=== PATIENT | male | born 1955 | race Caucasian/White ===

== ENCOUNTER 2018-06-01 06:28 | Day surgery (SDC) | payer BC ==
--- NOTE | 2018-05-31 16:33 | RAD REPORT ---
EXAM DESCRIPTION: RAD - Chest Pa And Lat (2 Views) - 05/31/2018 4:25 pm CLINICAL HISTORY: Preop chest, pending cholecystectomy COMPARISON: February 2016 TECHNIQUE: PA and lateral views of the chest were obtained. FINDINGS: The lungs are clear of an acute infiltrate, mass or failure finding. Parenchymal and hilar granulomatous calcifications are present. Lung markings are not significantly different from compari son. Heart size is normal and central vasculature is within normal limits. No pleural effusion or pneumothorax seen. No acute bony finding noted. No aortic abnormality. IMPRESSION: No acute cardiopulmonary process. Chest findings are similar to February 2016.
[2018-05-31 16:49] LABS: Absolute Monocytes 0.7 K/uL (0.1-1.3); Absolute Neutrophil 5.6 K/uL (1.8-8.0); Basophils % 0.4 % (0-1.3); Eosinophils % 2.1 % (0-4.4); Hematocrit 42.9 % (39.6-49.0); Lymphocytes % 23.3 % (15.3-44.8); MCH 31.3 pg (27.0-35.0); MCV 93.1 fL (80-100); MPV 8.1 fL (7.6-11.3); Monocytes % 8.8 % (3.3-12.3); RBC Red Blood Cell Count 4.61 M/uL (4.33-5.43)
[2018-05-31 17:03] LABS: BUN Blood Urea Nitrogen 23 mg/dL (7-18); Bicarbonate 29 mmol/L (21-32); Glucose Level 195 mg/dL (74-106); Potassium 4.2 mmol/L (3.5-5.1); Sodium Level 140 mmol/L (136-145)
[2018-05-31 17:25] LABS: Albumin 3.7 g/dL (3.4-5.0); Bilirubin Direct 0.1 mg/dL (0-0.2); Bilirubin Total 0.4 mg/dL (0.2-1.0); Protein, Total 7.7 g/dL (6.4-8.2)
--- NOTE | 2018-05-31 21:11 | EKG ---
Test Date: 2018-05-31 Test Time: 16:21:13 Market Researcher: HARDEEP MEASUREMENT RESULTS: Intervals: Rate: 62 CA: 134 QRSD: 86 QT: 388 QTc: 393 [place]: P: 92 CA: 134 QRS: -11 T: 51 INTERPRETIVE STATEMENTS: Normal sinus rhythm Normal ECG No previous ECG available for comparison Electronically Signed On 05-31-18 21:10:17 CDT by Isaiah Eaton
[2018-06-01] MEDS ORDERED: BUPIVACAINE 0.5% PF 10 ML VIAL ONE (07:11)
[2018-06-01] MEDS ORDERED: ROCURONIUM 50 MG/5 ML VIAL IV ONE (07:18)
[2018-06-01] MEDS ORDERED: FENTANYL CITR 100 MCG/2 ML ONE (07:18)
[2018-06-01] MEDS ORDERED: MIDAZOLAM HCL 2 MG/2 ML INJ ONE (07:18)
[2018-06-01] MEDS ORDERED: PROPOFOL 200 MG/20 ML VIAL IV ONE (07:18)
[2018-06-01] MEDS ORDERED: LIDOCAINE 1% MPF 5 ML VIAL ONE (07:18)
[2018-06-01] MEDS ORDERED: CEFOXITIN/SWI 1gm 1 GM/10 ML SYR ONE (07:36)
[2018-06-01] MEDS ORDERED: NA CHLORIDE 0.9% 1,000 ML ONE ×2 (07:36→08:49)
[2018-06-01] MEDS ORDERED: GLYCOPYRROLATE 0.2 MG/ML SYR ONE ×3 (08:29→08:49)
[2018-06-01] MEDS ORDERED: NEOSTIGMINE 1 MG/ML -5 ML SYRINGE ONE (08:49)
[2018-06-01] MEDS ORDERED: KETOROLAC 30 MG/ML INJ ONE (08:49)
[2018-06-01] MEDS ORDERED: ONDANSETRON HCL 40 MG/20 ML VIAL ONE (08:49)
--- NOTE | 2018-06-01 08:51 | P.BOP ---
Preoperative diagnosis: Acute cholecystitis, symptomatic cholelithiasis Postoperative diagnosis: same, incarcerated umbilical hernia Primary procedure: 1. Laparoscopic cholecystectomy Secondary procedure: 2. open repair of incarcerated umbilical hernia Log Buncher: CHARLES REAGAN Estimated blood loss: <10cc Specimen: gb Findings: as above Anesthesia: General Complications: None Transferred to: Recovery Room Condition: Good
[2018-06-01] MEDS ORDERED: MEPERIDINE HCL 50 MG/ML AMP ONE (09:23)
[2018-06-01] MEDS ORDERED: CODEINE 30MG/APAP 300MG TAB ONE (10:35)
--- NOTE | 2018-06-11 15:39 | OP ---
Date of Procedure: 06/01/2018 Surgeon: Zachary Lebron MD Out Of [employer] Hours Care Worker: DEYANIRA Lawton. Preoperative Diagnoses: Acute cholecystitis, symptomatic cholelithiasis. Postoperative Diagnoses: Acute cholecystitis, symptomatic cholelithiasis, incarcerated umbilical her jennifer. Procedures: 1.Laparoscopic cholecystectomy. 2.Open repair of an incarcerated umbilical hernia. Estimated Blood Loss: Less than 10 cc. Specimen: Gallbladder. Anesthesia: General plus local. Findings: The patient has acute cholecystitis, symptomatic cholelithiasis, also have incarcerated om entum in the umbilical hernia. Indications: This is the case of a patient who comes to us with above diagnosis. Fully explained th e benefits, alternatives, and risks of laparoscopic, possible open cholecystectomy, which include but are not limited to infection, bleeding, damage to adjacent structures, anesthesia complication, chol edocholithiasis, bile leak, pancreatitis, OH, and even . He also understands this may not relie ve his symptoms. He might need more than one surgical intervention. He understood, signed a consent . Description Of Procedure: The patient was brought to the operating room, placed in supine position. Anesthesia was done without complication. A time-out was called. Abdominal area was prepped and dr aped in sterile fashion. Marcaine 0.5% was injected for local anesthetic, followed by sharp incision of the skin in the umbilical region. Once we made the incision, we noticed the patient to have an i ncarcerated umbilical hernia. The patient is obese, so we were able to carefully delineate the herni a sac. We removed it from the umbilical skin, opened the hernia sac. Noted to have incarcerated ome ntum. After removal of adhesions to the hernia sac, we were able to visualize the omentum, seemed to be intact, viable, so we reduced it back into the abdominal cavity making sure there was no bleeding . We removed the hernia sac. After that, we extended the incision a little bit more to allow us to put a Sanjiv trocar with Vicryl #1 placed inside the fascia. Sanjiv trocar was carefully introduced. Pneumoperitoneum was obtained. I placed 3 more trocars, 5 mm each one of them, in the right upper quadrant using same technique, under direct visualization. A grasper was placed in the fundus of the gallbladder, another grasper was placed in the infundibulum, and the patient's gallbladder retracted in the inferolateral fashion exposing the triangle of Calot, obtaining critical view of safety, afte r proper position of the patient. The cystic duct and cystic artery were clearly isolated free circu mferentially, and a connection between those and the gallbladder was clearly identified. I proceeded to ligate those by using at least 3 clips proximal, 1 clip distal, ligation in middle. Same was don e with the cystic artery. No bile leak. No bleeding. The gallbladder was removed from liver using Bovie cauterizer and removed from abdominal cavity using EndoCatch through umbilical incision. The a josé miguel was inspected once again. Clips were intact. No bile leak. No bleeding. Gallbladder fossa wit h no bleeding. At that moment, I proceeded to remove the trocars under direct vision. Deflated pneu moperitoneum. Closed the fascia and the umbilical hernia with #1 Vicryl. Irrigated subcu tissue, cl osed that with 3-0 chromic and then the skin approximated. Sponge count instrument counts were corre ct. The patient tolerated the procedure well. The patient was sent to recovery room in stable condi tion. JOE/MAYA Voice ID: [id number] Report ID: [id number]
--- NOTE | 2018-06-11 15:39 | DS ---
Date of Discharge: 06/01/2018 Diagnoses: Acute cholecystitis symptomatic cholelithiasis, incarcerated umbilical hernia. Procedures: Laparoscopic cholecystectomy. Open repair of incarcerated umbilical hernia. Disposition: Home. Activity as tolerated. No heavy lifting. Follow up in my office in 1 week. Tamara frost for appointment [phone]. Keep area dry for 48 hours, then may shower. For medications, see orders. JOE/MAYA Voice ID: [id number] Report ID: [id number]
== END 2018-06-01 11:04 | disposition home or self-care (01) ==
LOC: OR 06:28
PROVIDERS: ATTEND Surgery
PROC: 0WQF0ZZ Repair Abdominal Wall, Open Approach (ICD-10-PCS; 2018-06-01)
PROC: 0FT44ZZ Resection of Gallbladder, Percutaneous Endoscopic Approach (ICD-10-PCS; principal; 2018-06-01 07:30)
DX: K80.12 Calculus of gallbladder with acute and chronic cholecystitis without obstruction (principal); K42.0 Umbilical hernia with obstruction, without gangrene; I10 Essential (primary) hypertension; E11.9 Type 2 diabetes mellitus without complications; Z82.49 Family history of ischemic heart disease and other diseases of the circulatory system
CPT/HCPCS: 36415; 71046; 80048; 80076; 82150; 82962; 83690; 85025; 88304; 93005; J2175; J2250; J2405; J2710; J3010; J7030

== ENCOUNTER 2020-01-13 17:55 | Emergency (ER) | payer BC, OTHER ==
--- NOTE | 2020-01-13 18:42 | RAD REPORT ---
EXAM DESCRIPTION: RAD - Chest Single View - 01/13/2020 6:36 pm CLINICAL HISTORY: COUGH Chest pain. COMPARISON: Chest Pa And Lat (2 Views) dated 05/31/2018; Chest Pa And Lat (2 Views) dated 02/24/2016 FINDINGS: Portable technique limits examination quality. Interstitial lung markings are slightly prominent in the parahilar regions which could indicate viral pneumonitis. No focal consolidation typical of pneumonia seen. The heart is normal in size. No displ aced fractures.
[2020-01-13 19:42] LABS: Absolute Lymphocytes (CBC) 1.6 K/uL (0.7-4.9); Basophils % 0.3 % (0-1.3); Hematocrit 46.1 % (39.6-49.0); Lymphocytes % 15.5 % (15.3-44.8); MPV 8.1 fL (7.6-11.3); RBC Red Blood Cell Count 5.05 M/uL (4.33-5.43)
[2020-01-13 19:48] LABS: Protime INR 0.92
[2020-01-13 20:02] LABS: ALT/SGPT 30 U/L (12-78); AST/SGOT 13 U/L (15-37); Albumin 3.8 g/dL (3.4-5.0); Alkaline Phosphatase 55 U/L (45-117); BUN Blood Urea Nitrogen 15 mg/dL (7-18); Bicarbonate 29 mmol/L (21-32); Bilirubin Direct 0.1 mg/dL (0-0.2); Bilirubin Total 0.3 mg/dL (0.2-1.0); Glucose Level 179 mg/dL (74-106); NT PRO-BNP 41 pg/mL (<125); Potassium 4.3 mmol/L (3.5-5.1); Protein, Total 8.3 g/dL (6.4-8.2); Sodium Level 139 mmol/L (136-145); Troponin (Emerg Dept Use Only) < 0.02 ng/mL (0.0-0.045)
--- NOTE | 2020-01-13 20:30 | EDPHYS ---
Physician Documentation [facility] Name: Bhavesh Graham Jr Age: 64 yrs Sex: Male : 1955 Arrival Date: 01/13/2020 Time: 17:57 Bed 20 Private MD: ED Physician Mac Brand HPI: 01/12 18:29 This 64 yrs old Male presents to ER via Ambulatory with complaints of Cough, cp Fever, Chest Tightness. 18:33 The patient has been recently seen at an urgent care, today, for similar complaints, cp was given a prescription for antibiotics, prescribed oral Amoxicillin and Z-miriam. Historical: - Allergies: 19:49 No Known Allergies; ae4 - PMHx: 18:09 Diabetes - NIDDM; High Cholesterol; Hypertension; ss - PSHx: 18:09 Ear Surgery; ss - Immunization history:: Adult Immunizations up to date. - Social history:: Smoking status: Patient denies any tobacco usage or history of. ROS: 18:40 Constitutional: Negative for body aches, chills, fever, poor PO intake. cp 18:40 Eyes: Negative for injury, pain, redness, and discharge. cp 18:40 ENT: Positive for sore throat, Negative for drainage from ear(s), ear pain, difficulty cp swallowing, difficulty handling secretions. 18:40 Cardiovascular: Positive for chest tightness. 18:40 Respiratory: Positive for cough, "sounds productive", Negative for shortness of breath, wheezing. 18:40 Abdomen/GI: Negative for abdominal pain, nausea, vomiting, and diarrhea, constipation. 18:40 Neuro: Negative for altered mental status, dizziness, headache, syncope, weakness. 18:40 All other systems are negative. Exam: 18:45 Constitutional: The patient appears in no acute distress, alert, awake, cp non-diaphoretic, non-toxic, well developed, well nourished. 18:45 Head/Face: Normocephalic, atraumatic. cp 18:45 Eyes: Periorbital structures: appear normal, Conjunctiva: normal, no exudate, no injection, Sclera: no appreciated abnormality, Lids and lashes: appear normal, bilaterally. 18:45 ENT: External ear(s): are unremarkable, Nose: is normal, Mouth: Lips: moist, Oral mucosa: pink and intact, moist, Posterior pharynx: is normal, airway is patent, no erythema, no exudate. 18:45 Neck: ROM/movement: is normal, is supple, no meningismus, no nuchal rigidity. 18:45 Chest/axilla: Inspection: normal, Palpation: is normal, no crepitus, no tenderness. 18:45 Cardiovascular: Rate: normal, Rhythm: regular, Edema: is not appreciated, JVD: is not appreciated. 18:45 Respiratory: the patient does not display signs of respiratory distress, Respirations: normal, no use of accessory muscles, no retractions, no splinting, labored breathing, is not present, Breath sounds: bronchial sounds, that are mild, are heard diffusely, stridor, is not appreciated, + upper airway congestion. wheezing: is not appreciated. 18:45 Abdomen/GI: Inspection: abdomen appears normal, Palpation: abdomen is soft and non-tender, in all quadrants. 18:45 Back: pain, is absent, ROM is normal. 18:45 Skin: no rash present. 18:45 Neuro: Orientation: to person, place \\T\\ time. Mentation: is normal. Vital Signs: 18:07 BP 153 / 107; Pulse 77; Resp 16; Temp 98.7(TE); Pulse Ox 100% on R/A; Weight 83.01 kg; ss Height 5 ft. 7 in. (170.18 cm); Pain 0/10; 19:45 BP 146 / 85; Pulse 82; Resp 19; Pulse Ox 99% on R/A; ae4 18:07 Body Mass Index 28.66 (83.01 kg, 170.18 cm) MDM: 18:01 Patient medically screened. angelita 19:00 Differential Diagnosis: Bronchitis Influenza Viral Syndrome Pneumonia. cp 20:28 Data reviewed: vital signs, nurses notes, lab test result(s), EKG, radiologic studies, cp plain films. 20:28 Test interpretation: by ED physician or midlevel provider: ECG. Counseling: I had a cp detailed discussion with the patient and/or guardian regarding: the historical points, exam findings, and any diagnostic results supporting the discharge/admit diagnosis, lab results, radiology results, to return to the emergency department if symptoms worsen or persist or if there are any questions or concerns that arise at home. ED course: VSS. Patient appears non-toxic and no signs of respiratory distress. Will discharge to home and patient to self quarantine for next 11 days with family. Testing for coronavirus performed. 01/12 18:20 Order name: Flu [facility] 01/12 18:20 Order name: Strep ae 01/12 18:20 Order name: Basic Metabolic Panel; Complete Time: 20:18 ae4 01/12 20:18 Interpretation: Normal except: GLUC 179. 01/12 18:20 Order name: CBC with Diff; Complete Time: 19:51 ae 01/12 19:52 Interpretation: Reviewed. 01/12 18:20 Order name: LFT's; Complete Time: 20:18 [facility] 01/12 20:18 Interpretation: Normal except: AST 13; TP 8.3; GLOB 4.5; A/G 0.8. 01/12 18:20 Order name: Magnesium; Complete Time: 20:18 [facility] 01/12 18:20 Order name: NT PRO-BNP; Complete Time: 20:18 [facility] 01/12 18:20 Order name: PT-INR; Complete Time: 19:51 [facility] 01/12 18:20 Order name: Troponin (emerg Dept Use Only); Complete Time: 20:18 [facility] 01/12 20:19 Interpretation: TROPED < 0.02; Reviewed. 01/12 18:20 Order name: Influenza Screen (A ; Complete Time: 20:18 [facility] 01/12 20:19 Interpretation: Reviewed. 01/12 18:20 Order name: Group A Streptococcus Rapid Sc; Complete Time: 20:18 [facility] 01/12 19:53 Order name: Throat Culture [facility] 01/12 18:20 Order name: XRAY Chest (1 view); Complete Time: 18:49 [facility] 01/12 18:49 Interpretation: Report review. 01/12 18:20 Order name: EKG; Complete Time: 18:21 [facility] 01/12 18:20 Order name: Cardiac monitoring; Complete Time: 19:45 [facility] 01/12 18:20 Order name: EKG - Nurse/Tech; Complete Time: 19:45 [facility] 01/12 18:20 Order name: IV Saline Lock; Complete Time: 19:45 [facility] 01/12 18:20 Order name: Labs collected and sent; Complete Time: 19:45 ae4 01/12 18:20 Order name: O2 Per Protocol; Complete Time: 19:45 ae4 01/12 18:20 Order name: O2 Sat Monitoring; Complete Time: 19:45 ae4 01/12 21:12 Order name: Misc. Order: Covid-19; Complete Time: 21:12 bb Administered Medications: No medications were administered Disposition: 01/13 13:42 Co-signature as Attending Physician, Mac Brand MD I agree with the assessment and angelita plan of care. Disposition: 01/13/20 20:29 Discharged to Home. Impression: Acute bronchitis. - Condition is Stable. - Discharge Instructions: Acute Bronchitis, Adult. - Prescriptions for Tessalon Perles 100 mg Oral Capsule - take 2 capsule by ORAL route every 8 hours As needed; 30 capsule. Albuterol Sulfate 90 mcg/actuation - inhale 1-2 puff by INHALATION route every 4-6 hours; 1 Inhaler. - Medication Reconciliation Form, Thank You Letter, Antibiotic Education, Prescription Opioid Use form. - Work release form (01/15/20 08:41). bd - Follow up: Emergency Department; When: As needed; Reason: Worsening of condition. - Problem is new. - Symptoms have improved. - Notes: Patient is to self quarantine for next 11 days along with family Signatures: Dispatcher [employer] EDMac Ponce MD MD cha Ballard, Brenda, RN RN Nicole Posada RN RN ss Page, Corey, PA PA cp Elliott, Andrea, RN RN ae4 Bruna Chester bd Corrections: (The following items were deleted from the chart) 01/12 19:50 18:09 Allergies: NKDA; ss ae4 20:56 20:29 01/13/2020 20:29 Discharged to Home. Impression: Acute bronchitis. Condition is ae4 Stable. Forms are Medication Reconciliation Form, Thank You Letter, Antibiotic Education, Prescription Opioid Use. Follow up: Emergency Department; When: As needed; Reason: Worsening of condition. Problem is new. Symptoms have improved. cp 21:12 20:56 01/13/2020 20:29 Discharged to Home. Impression: Acute bronchitis. Condition is bb Stable. Discharge Instructions: Acute Bronchitis, Adult. Prescriptions for Tessalon Perles 100 mg Oral Capsule - take 2 capsule by ORAL route every 8 hours As needed; 30 capsule, Albuterol Sulfate 90 mcg/actuation - inhale 1-2 puff by INHALATION route every 4-6 hours; 1 Inhaler. and Forms are Medication Reconciliation Form, Thank You Letter, Antibiotic Education, Prescription Opioid Use. Follow up: Emergency Department; When: As needed; Reason: Worsening of condition. Problem is new. Symptoms have improved. ae4
--- NOTE | 2020-01-13 20:30 | ER ---
Nurse's Notes [facility] Name: Bhavesh Graham Jr Age: 64 yrs Sex: Male : 1955 Arrival Date: 01/13/2020 Time: 17:57 Bed 20 Private MD: Diagnosis: Acute bronchitis Presentation: 01/12 18:07 Chief complaint: Patient states: cough x 3 days. Pt was seen at urgent care today and ss given amoxicillin, Z-Arya and Tessalon Perles. Staff members told him if he developed a fever, to come to the hospital. Pt states he felt warm, checked his temperature which it was 99.5. Coronavirus screen: Surgical mask placed on patient. Patient moved to private room, placed in contact and droplet isolation with eye protection until further assessment. Patient reports a cough. Patient denies shortness of breath or difficulty breathing. Patient denies measured and/or subjective temperature greater than 100.4F. Patient denies travel on a cruise ship or to a country the [facility] currently lists as an affected area. Patient denies contact with known and/or suspected case of COVID-19. Ebola Screen: Patient denies exposure to infectious person. Patient denies travel to an Ebola-affected area in the 21 days before illness onset. Initial Sepsis Screen: Does the patient meet any 2 criteria? No. Patient's initial sepsis screen is negative. Does the patient have a suspected source of infection? No. Patient's initial sepsis screen is negative. Risk Assessment: Do you want to hurt yourself or someone else? Patient reports no desire to harm self or others. 18:07 Method Of Arrival: Ambulatory ss 18:07 Acuity: JASMEET 5 ss 19:50 Onset of symptoms was January 09, 2020. ae4 Triage Assessment: 19:20 General: Appears in no apparent distress. comfortable, Behavior is calm, cooperative. ae4 Pain: Complains of pain in chest upon cough. EENT: Reports nasal congestion nasal discharge. 19:20 EENT:. Neuro: Level of Consciousness is awake, alert, obeys commands, Oriented to ae4 person. Cardiovascular: Patient's skin is warm and dry. Respiratory: Airway is patent Respiratory effort is even, unlabored, Respiratory pattern is regular, symmetrical. Respiratory: Reports shortness of breath cough that is non-productive, dry, persistent. GI: No signs and/or symptoms were reported involving the gastrointestinal system. : No signs and/or symptoms were reported regarding the genitourinary system. Derm: Skin is pink, warm \T\ dry. Musculoskeletal: No signs and/or symptoms reported regarding the musculoskeletal system. Historical: - Allergies: 19:49 No Known Allergies; ae4 - PMHx: 18:09 Diabetes - NIDDM; High Cholesterol; Hypertension; ss - PSHx: 18:09 Ear Surgery; ss - Immunization history:: Adult Immunizations up to date. - Social history:: Smoking status: Patient denies any tobacco usage or history of. Screenin:46 Abuse screen: Denies threats or abuse. Nutritional screening: No deficits noted. ae4 Tuberculosis screening: No symptoms or risk factors identified. Fall Risk None identified. Assessment: 19:50 Pain: Pain does not radiate. Pain began gradually, 2-3 days ago. ae4 20:51 Reassessment: Patient appears in no apparent distress at this time. No changes from ae4 previously documented assessment. Patient is alert, oriented x 3, equal unlabored respirations, skin warm/dry/pink. 01/13 08:28 Reassessment: [facility]# [id number]. Vital Signs: 01/12 18:07 BP 153 / 107; Pulse 77; Resp 16; Temp 98.7(TE); Pulse Ox 100% on R/A; Weight 83.01 kg; ss Height 5 ft. 7 in. (170.18 cm); Pain 0/10; 19:45 BP 146 / 85; Pulse 82; Resp 19; Pulse Ox 99% on R/A; ae4 18:07 Body Mass Index 28.66 (83.01 kg, 170.18 cm) ED Course: 17:57 Patient arrived in ED. mr 18:01 Mac Brand MD is Attending Physician. angelita 18:01 Mac Luciano PA is PHCP. cp 18:09 Triage completed. ss 18:09 Arm band placed on left wrist. 18:18 Ignacio Martell, SHEY is Primary Nurse. ae4 18:37 XRAY Chest (1 view) In Process Unspecified. EDMS 19:20 Inserted saline lock: 20 gauge in right antecubital area, using aseptic technique. ae4 Blood collected. Patient maintains SpO2 saturation greater than 95% on room air. 19:47 Patient has correct armband on for positive identification. Bed in low position. Call ae4 light in reach. Side rails up X 1. awake overnight monitor on. Pulse ox on. NIBP on. 20:51 No provider procedures requiring assistance completed. IV discontinued, intact, ae4 bleeding controlled, No redness/swelling at site. Pressure dressing applied. 21:10 Primary Nurse role handed off by Ignacio Martell, RN bb Administered Medications: No medications were administered Outcome: 20:29 Discharge ordered by . maggie 20:51 Discharged to home ambulatory. ae4 20:51 Condition: stable 20:51 Discharge instructions given to patient, Instructed on discharge instructions, follow up and referral plans. Self quarantine as well as family. Demonstrated understanding of instructions, follow-up care. 20:56 Patient left the ED. ae4 21:12 Patient left the ED. bb Signatures: Dispatcher [employer] EDMS Mac Brand MD MD cha Rivera, Mary mr Emily Hedrick RN RN Nicole Posada RN RN ss Page, Corey, PA PA cp Elliott, Andrea, RN RN ae4 Corrections: (The following items were deleted from the chart) 19:50 18:09 Allergies: NKDA; ss ae4
[2020-01-13 21:06] VITALS: TEMP 98.7
[2020-01-13 21:07] VITALS: BP 146/85; O2SAT 99
--- NOTE | 2020-01-14 09:17 | EKG ---
Test Date: 2020-01-13 Test Time: 19:29:06 [employer] Sewer: SREE MEASUREMENT RESULTS: Intervals: Rate: 73 AL: 138 QRSD: 74 QT: 356 QTc: 392 [place]: P: 56 AL: 138 QRS: -13 T: 37 INTERPRETIVE STATEMENTS: Normal sinus rhythm Inferior infarct, age undetermined Abnormal ECG Compared to ECG 05/31/2018 16:21:13 Myocardial infarct finding now present Electronically Signed On 01-14-20 09:16:16 CDT by Josh Stevens
== END 2020-01-13 21:12 | disposition home or self-care (01) ==
LOC: ER 17:55
DX: J20.9 Acute bronchitis, unspecified (principal); Z03.818 Encounter for observation for suspected exposure to other biological agents ruled out; I10 Essential (primary) hypertension
CPT/HCPCS: 93005; 87070; 85025; 80048; 36415; 83735; 85610; 80076; 87081; 84484; 83880; 87804 ×2; 71045; 99285; U0001

== ENCOUNTER 2020-05-18 14:26 | Emergency (ER) | payer BC ==
--- NOTE | 2020-05-18 14:57 | ER ---
Nurse's Notes [facility] Name: Bhavesh Graham Jr Age: 64 yrs Sex: Male : 1955 Arrival Date: 05/18/2020 Time: 14:30 Bed 13 Private MD: Diagnosis: Conjunctivitis Presentation: 05/18 14:42 Chief complaint: Patient states: Redness, itching, puffiness and drainage to R eye x 1 ss week. Is now spreading to L eye. Coronavirus screen: Client denies travel out of the [place] in the last 14 days. At this time, the client does not indicate any symptoms associated with coronavirus-19. Ebola Screen: Patient denies exposure to infectious person. Patient denies travel to an Ebola-affected area in the 21 days before illness onset. Initial Sepsis Screen: Does the patient meet any 2 criteria? No. Patient's initial sepsis screen is negative. Does the patient have a suspected source of infection? No. Patient's initial sepsis screen is negative. Risk Assessment: Do you want to hurt yourself or someone else? Patient reports no desire to harm self or others. Onset of symptoms was April 2020. 14:42 Method Of Arrival: Ambulatory ss 14:42 Acuity: JASMEET 5 ss Historical: - Allergies: 14:43 No Known Allergies; ss - PMHx: 14:43 Diabetes - NIDDM; High Cholesterol; Hypertension; ss - PSHx: 14:43 Ear Surgery; ss - Immunization history:: Adult Immunizations up to date. - Social history:: Smoking status: Patient denies any tobacco usage or history of. Screenin:44 Abuse screen: Denies threats or abuse. Denies injuries from another. Nutritional ss screening: No deficits noted. Tuberculosis screening: Never had TB. Fall Risk None identified. Assessment: 14:44 General: Appears in no apparent distress. comfortable, Behavior is calm, cooperative. ss Pain: Denies pain. Neuro: Level of Consciousness is awake, alert, obeys commands, Oriented to person, place, time, situation. Respiratory: Airway is patent Respiratory effort is even, unlabored, Respiratory pattern is regular, symmetrical. GI: No signs and/or symptoms were reported involving the gastrointestinal system. EENT: redness to bilateral sclera/ conjunctiva noted. Pt reports this began 1 week ago. BEgan in R eye, now spread to L eye. . Derm: Skin is pink, warm \T\ dry. normal. Vital Signs: 14:42 BP 149 / 84; Pulse 65; Resp 16; Temp 98.2(O); Pulse Ox 97% on R/A; Weight 82.55 kg; ss Height 5 ft. 7 in. (170.18 cm); Pain 0/10; 14:42 Body Mass Index 28.50 (82.55 kg, 170.18 cm) ED Course: 14:30 Patient arrived in ED. fj1 14:42 Nicole Machado, SHEY is Primary Nurse. 14:43 Triage completed. 14:43 Arm band placed on right wrist. 14:44 Austyn Rosado PA is PHCP. jr8 14:44 Roni Ortiz MD is Attending Physician. jr8 14:44 Patient has correct armband on for positive identification. Bed in low position. Call ss light in reach. 14:57 You Julian MD is Referral Physician. jr8 15:02 No provider procedures requiring assistance completed. Patient did not have IV access ss during this emergency room visit. Administered Medications: No medications were administered Outcome: 14:57 Discharge ordered by . jr8 15:02 Discharged to home ambulatory. 15:02 Condition: good 15:02 Discharge instructions given to patient, Instructed on discharge instructions, follow up and referral plans. Demonstrated understanding of instructions, follow-up care, medications, Prescriptions given X 1. 15:03 Patient left the ED. Signatures: Nicole Machado RN RN Austyn Rosado PA PA Boris Perry fj
--- NOTE | 2020-05-18 14:58 | EDPHYS ---
Physician Documentation [facility] Name: Bhavesh Graham Jr Age: 64 yrs Sex: Male : 1955 Arrival Date: 05/18/2020 Time: 14:30 Bed 13 Private MD: ED Physician Roni Ortiz HPI: 05/18 14:53 This 64 yrs old Male presents to ER via Ambulatory with complaints of Eye jr8 Problem. 14:53 The patient is experiencing matting or discharge, pain, redness, tearing, to both eyes. jr8 Onset: The symptoms/episode began/occurred gradually. Duration: the symptoms are continuous. Aggravated by rubbing, Alleviated by nothing. Associated signs and symptoms: Pertinent positives: None. Severity of symptoms: At their worst the symptoms were mild in the emergency department the symptoms are unchanged. The patient has not experienced similar symptoms in the past. The patient has not recently seen a physician. Historical: - Allergies: 14:43 No Known Allergies; ss - PMHx: 14:43 Diabetes - NIDDM; High Cholesterol; Hypertension; ss - PSHx: 14:43 Ear Surgery; ss - Immunization history:: Adult Immunizations up to date. - Social history:: Smoking status: Patient denies any tobacco usage or history of. ROS: 14:53 ENT: Negative for injury, pain, and discharge, Neck: Negative for injury, pain, and jr8 swelling, Cardiovascular: Negative for chest pain, palpitations, and edema, Respiratory: Negative for shortness of breath, cough, wheezing, and pleuritic chest pain, Abdomen/GI: Negative for abdominal pain, nausea, vomiting, diarrhea, and constipation, Back: Negative for injury and pain, MS/Extremity: Negative for injury and deformity, Skin: Negative for injury, rash, and discoloration, Neuro: Negative for headache, weakness, numbness, tingling, and seizure. 14:53 Eyes: Positive for discharge, itching, matting, pain, redness, tearing. Exam: 14:53 Visual Acuity: Visual acuity is within normal limits. jr8 14:53 Constitutional: This is a well developed, well nourished patient who is awake, alert, and in no acute distress. Head/Face: Normocephalic, atraumatic. ENT: Nares patent. No nasal discharge, no septal abnormalities noted. Tympanic membranes are normal and external auditory canals are clear. Oropharynx with no redness, swelling, or masses, exudates, or evidence of obstruction, uvula midline. Mucous membranes moist. Cardiovascular: Regular rate and rhythm with a normal S1 and S2. No gallops, murmurs, or rubs. Normal PMI, no JVD. No pulse deficits. Respiratory: Lungs have equal breath sounds bilaterally, clear to auscultation and percussion. No rales, rhonchi or wheezes noted. No increased work of breathing, no retractions or nasal flaring. Skin: Warm, dry with normal turgor. Normal color with no rashes, no lesions, and no evidence of cellulitis. MS/ Extremity: Pulses equal, no cyanosis. Neurovascular intact. Full, normal range of motion. Neuro: Awake and alert, GCS 15, oriented to person, place, time, and situation. Cranial nerves II-XII grossly intact. Motor strength 5/5 in all extremities. Sensory grossly intact. Cerebellar exam normal. Normal gait. 14:53 Eyes: Periorbital structures: appear normal, Pupils: equal, round, and reactive to light and accomodation, Extraocular movements: intact throughout, Conjunctiva: injected, in the right eye, tearing noted, bilaterally, Corneas: are normal, Sclera: no appreciated abnormality, Anterior chamber: normal, Lids and lashes: appear normal, discharge noted to both eyes . Vital Signs: 14:42 BP 149 / 84; Pulse 65; Resp 16; Temp 98.2(O); Pulse Ox 97% on R/A; Weight 82.55 kg; ss Height 5 ft. 7 in. (170.18 cm); Pain 0/10; 14:42 Body Mass Index 28.50 (82.55 kg, 170.18 cm) ss MDM: 14:44 Patient medically screened[address] [facility] 14:53 Data reviewed: vital signs, nurses notes, and as a result, I will discharge patient. jr8 Data interpreted: Pulse oximetry: on room air is 97 %. Interpretation: normal. Counseling: I had a detailed discussion with the patient and/or guardian regarding: the historical points, exam findings, and any diagnostic results supporting the discharge/admit diagnosis, the need for outpatient follow up, an opthalmologist, to return to the emergency department if symptoms worsen or persist or if there are any questions or concerns that arise at home. Administered Medications: No medications were administered Disposition: 15:28 Co-signature as Attending Physician, Roni Ortiz MD I agree with the assessment and kdr plan of care. Disposition: 05/18/20 14:57 Discharged to Home. Impression: Conjunctivitis. - Condition is Stable. - Discharge Instructions: Bacterial Conjunctivitis, Viral Conjunctivitis. - Prescriptions for Gentamicin 0.3 % Ophthalmic Drops - instill 2 drops by OPHTHALMIC route every 4 hours for 7 days OU; 1 bottle. - Medication Reconciliation Form, Thank You Letter, Antibiotic Education, Prescription Opioid Use form. - Follow up: You Julian MD; When: 5 - 6 days; Reason: Recheck today's complaints, Continuance of care, Re-evaluation by your physician. - Problem is new. - Symptoms have improved. Signatures: Roni Ortiz MD MD [facility] Nicole Machado RN RN ss Austyn Rosado PA PA jr8 Corrections: (The following items were deleted from the chart) 15:03 14:57 05/18/2020 14:57 Discharged to Home. Impression: Conjunctivitis. Condition is ss Stable. Forms are Medication Reconciliation Form, Thank You Letter, Antibiotic Education, Prescription Opioid Use. Follow up: You Julian; When: 5 - 6 days; Reason: Recheck today's complaints, Continuance of care, Re-evaluation by your physician. Problem is new. Symptoms have improved. jr8
[2020-05-18 15:28] VITALS: BP 149/84; TEMP 98.2; O2SAT 97
== END 2020-05-18 15:03 | disposition home or self-care (01) ==
LOC: ER 14:26
DX: H10.9 Unspecified conjunctivitis (principal); I10 Essential (primary) hypertension
CPT/HCPCS: 99282

== ENCOUNTER 2020-07-26 21:18 | Emergency (ER) | payer BC ==
[2020-07-26] MEDS ORDERED: HYDROCODONE/APAP 10/325 TAB ONE (22:06)
--- NOTE | 2020-07-26 22:56 | ER ---
Nurse's Notes [facility] Name: Bhavesh Graham Jr Age: 65 yrs Sex: Male : 1955 Arrival Date: 07/26/2020 Time: 21:21 Bed 19 [employer] MD: Diagnosis: Fracture of one rib, right side Presentation: 07/26 21:24 Chief complaint: Patient states: Right lower rib cage pain for 10 days after getting a ll1 chiropractor adjustment. + SOB. No N/V/D. No fever. Coronavirus screen: Client denies travel out of the [place] in the last 14 days. At this time, the client does not indicate any symptoms associated with coronavirus-19. Ebola Screen: Patient denies travel to an Ebola-affected area in the 21 days before illness onset. Initial Sepsis Screen: Does the patient meet any 2 criteria? No. Patient's initial sepsis screen is negative. Does the patient have a suspected source of infection? Yes: Other: RIB CAGE PAIN. Risk Assessment: Do you want to hurt yourself or someone else? Patient reports no desire to harm self or others. Onset of symptoms was July 18, 2020. 21:24 Method Of Arrival: Ambulatory ll1 21:24 Acuity: JASMEET 4 ll1 Historical: - Allergies: 21:26 No Known Allergies; ll1 - PMHx: 21:26 Diabetes - NIDDM; High Cholesterol; Hypertension; ll1 - PSHx: 21:26 Ear Surgery; ll1 - Immunization history:: Flu vaccine is not up to date. - Social history:: Smoking status: Patient/guardian denies using tobacco, the patient reports quitting approximately 30 years ago. Screenin:16 Abuse screen: Denies threats or abuse. Nutritional screening: No deficits noted. jd3 Tuberculosis screening: No symptoms or risk factors identified. Fall Risk Ambulatory Aid- None/Bed Rest/Nurse Assist (0 pts). Gait- Normal/Bed Rest/Wheelchair (0 pts) Mental Status- Oriented to own ability (0 pts). Total Martines Fall Scale indicates No Risk (0-24 pts). Assessment: 21:29 General: Appears in no apparent distress. uncomfortable, Behavior is calm, cooperative, jd3 appropriate for age. Pain: Complains of pain in right lateral anterior chest Quality of pain is described as aching, tender. Neuro: Level of Consciousness is awake, alert, obeys commands, Oriented to person, place, time, situation. Cardiovascular: Denies chest pain, Capillary refill < 3 seconds Patient's skin is warm and dry. Respiratory: Reports pain with respiration Airway is patent Respiratory effort is even, unlabored, Respiratory pattern is regular, symmetrical. GI: No signs and/or symptoms were reported involving the gastrointestinal system. : No signs and/or symptoms were reported regarding the genitourinary system. EENT: No signs and/or symptoms were reported regarding the EENT system. Derm: Skin is intact, Skin is dry, Skin is normal, Skin temperature is warm. Musculoskeletal: Circulation, motion, and sensation intact. Range of motion: intact in all extremities. 23:16 Reassessment: Patient appears in no apparent distress at this time. Patient and/or jd3 family updated on plan of care and expected duration. Pain level reassessed. Patient is alert, oriented x 3, equal unlabored respirations, skin warm/dry/pink. Patient states feeling better. Vital Signs: 21:24 BP 151 / 90; Pulse 82; Resp 18; Temp 97.1; Pulse Ox 97% ; Weight 82.55 kg; Height 5 ft. ll1 7 in. (170.18 cm); Pain 10/10; 23:17 BP 148 / 89; Pulse 83; Resp 19 S; Pulse Ox 97% on R/A; jd3 21:24 Body Mass Index 28.50 (82.55 kg, 170.18 cm) ll1 ED Course: 21:00 Patient has correct armband on for positive identification. Bed in low position. Call j light in reach. Side rails up X 1. Adult w/ patient. 21:00 Pulse ox on. NIBP on. jd3 21:21 Patient arrived in ED. cf2 21:26 Triage completed. ll1 21:27 Arm band placed on Patient placed in an exam room, on a stretcher. ll1 21:28 Arcelia Serrano FNP-C is PHCP. kb 21:28 Jose Ventura MD is Attending Physician. kb 21:29 Ivan Aguilar RN is Primary Nurse. jd3 21:46 CT Chest Wo Con In Process Unspecified. EDMS 23:17 No provider procedures requiring assistance completed. Patient did not have IV access jd3 during this emergency room visit. Administered Medications: 21:57 Drug: [place] 10 mg-325 mg 1 tabs Route: PO; jd3 22:50 Follow up: Response: No adverse reaction jd3 Outcome: 22:55 Discharge ordered by . abiola 23:17 Discharged to home ambulatory, with family. jd3 23:17 Condition: stable 23:17 Discharge instructions given to patient, family, Instructed on discharge instructions, follow up and referral plans. medication usage, Demonstrated understanding of instructions, follow-up care, medications, Prescriptions given X 2. 23:18 Patient left the ED. jd3 Signatures: Dispatcher [employer] EDMS Arcelia Serrano, ANA-C ANA-Ivan Rider RN RN jPaulette Garcia Lynsay RN RN ll1 Corrections: (The following items were deleted from the chart) 21:27 21:26 Social history: Smoking status: Patient denies any tobacco usage or history of. ll1 ll1
--- NOTE | 2020-07-26 22:56 | EDPHYS ---
Physician Documentation [facility] Name: Bhavesh Graham Jr Age: 65 yrs Sex: Male : 1955 Arrival Date: 07/26/2020 Time: 21:21 Bed 19 Private MD: ED Physician Jose Ventura HPI: 07/26 22:31 This 65 yrs old Male presents to ER via Ambulatory with complaints of kb Abdominal Pain. 22:30 The patient has not experienced similar symptoms in the past. The patient has not kb recently seen a physician. 22:31 The patient or guardian reports chest pain that is located primarily in the anterior kb chest wall, right. Onset: 10 day(s) ago. The pain radiates to right back. Associated signs and symptoms: The patient has no apparent associated signs or symptoms. The chest pain is described as aching. Duration: The patient or guardian reports a single episode. Modifying factors: The symptoms are alleviated by nothing. the symptoms are aggravated by cough, deep breath, movement, palpation of area. Severity of pain: At its worst the pain was moderate in the emergency department the pain is unchanged. Pt reports right lower rib/chest pain since getting adjusted at the chiropractor 10 days ago. Historical: - Allergies: 21:26 No Known Allergies; ll1 - PMHx: 21:26 Diabetes - NIDDM; High Cholesterol; Hypertension; ll1 - PSHx: 21:26 Ear Surgery; ll1 - Immunization history:: Flu vaccine is not up to date. - Social history:: Smoking status: Patient/guardian denies using tobacco, the patient reports quitting approximately 30 years ago. ROS: 22:29 Constitutional: Negative for fever, chills, and weight loss, Neck: Negative for injury, kb pain, and swelling, Respiratory: Negative for shortness of breath, cough, wheezing, and pleuritic chest pain, Abdomen/GI: Negative for abdominal pain, nausea, vomiting, diarrhea, and constipation, Back: Negative for injury and pain, MS/Extremity: Negative for injury and deformity, Skin: Negative for injury, rash, and discoloration, Neuro: Negative for headache, weakness, numbness, tingling, and seizure. 22:29 Cardiovascular: Positive for chest pain, with movement, of the right lateral posterior chest and right lateral anterior chest. Exam: 22:26 Constitutional: This is a well developed, well nourished patient who is awake, alert, kb and in no acute distress. Head/Face: Normocephalic, atraumatic. Cardiovascular: Regular rate and rhythm with a normal S1 and S2. No gallops, murmurs, or rubs. Normal PMI, no JVD. No pulse deficits. Respiratory: Lungs have equal breath sounds bilaterally, clear to auscultation and percussion. No rales, rhonchi or wheezes noted. No increased work of breathing, no retractions or nasal flaring. Skin: Warm, dry with normal turgor. Normal color with no rashes, no lesions, and no evidence of cellulitis. MS/ Extremity: Pulses equal, no cyanosis. Neurovascular intact. Full, normal range of motion. Neuro: Awake and alert, GCS 15, oriented to person, place, time, and situation. Cranial nerves II-XII grossly intact. Motor strength 5/5 in all extremities. Sensory grossly intact. Cerebellar exam normal. Normal gait. 22:26 Chest/axilla: Inspection: normal, Palpation: tenderness, that is moderate, of the right lateral anterior chest and right lateral posterior chest, that totally reproduces the patient's complaints. 22:26 Abdomen/GI: Inspection: abdomen appears normal, Bowel sounds: normal, Palpation: soft, in all quadrants, mild abdominal tenderness, in the right upper quadrant. 22:26 Back: pain, that is moderate, of the right subscapular area. Vital Signs: 21:24 BP 151 / 90; Pulse 82; Resp 18; Temp 97.1; Pulse Ox 97% ; Weight 82.55 kg; Height 5 ft. ll1 7 in. (170.18 cm); Pain 10/10; 23:17 BP 148 / 89; Pulse 83; Resp 19 S; Pulse Ox 97% on R/A; jd3 21:24 Body Mass Index 28.50 (82.55 kg, 170.18 cm) ll1 MDM: 21:28 Patient medically screened. kb 22:26 Data reviewed: vital signs, nurses notes. Data interpreted: Pulse oximetry: on room air kb is 97 %. Interpretation: normal. 22:55 Counseling: I had a detailed discussion with the patient and/or guardian regarding: the kb historical points, exam findings, and any diagnostic results supporting the discharge/admit diagnosis, radiology results, the need for outpatient follow up, a family practitioner, to return to the emergency department if symptoms worsen or persist or if there are any questions or concerns that arise at home. 07/26 21:29 Order name: CT Chest Wo Con kb Administered Medications: 21:57 Drug: [place] 10 mg-325 mg 1 tabs Route: PO; jd3 22:50 Follow up: Response: No adverse reaction jd3 Disposition: 07/27 02:05 Co-signature as Attending Physician, Jose Ventura MD. [email or web address] Disposition: 07/26/20 22:55 Discharged to Home. Impression: Fracture of one rib, right side. - Condition is Stable. - Discharge Instructions: Rib Fracture, [id number]. - Prescriptions for Ibuprofen 800 mg Oral Tablet - take 1 tablet by ORAL route every 8 hours As needed take with food; 30 tablet. Tramadol 50 mg Oral Tablet - take 1 tablet by ORAL route every 8 hours as needed; 12 tablet. - Medication Reconciliation Form, Thank You Letter, Antibiotic Education, Prescription Opioid Use form. - Follow up: Emergency Department; When: As needed; Reason: Worsening of condition. Follow up: Private Physician; When: 2 - 3 days; Reason: Recheck today's complaints, Continuance of care, Re-evaluation by your physician. Signatures: Dispatcher [employer] EDArcelia Adkins, A AND P TECHNICIAN-C A AND P TECHNICIAN-Ivan Rider RN RN jd3 Lewis, Lynsay, RN RN ll1 Holmes, Maurice, MD MD [email or web address] Corrections: (The following items were deleted from the chart) 07/26 21:27 21:26 Social history: Smoking status: Patient denies any tobacco usage or history of. [email or web address] 23:18 22:55 07/26/2020 22:55 Discharged to Home. Impression: Fracture of one rib, right side. jd3 Condition is Stable. Forms are Medication Reconciliation Form, Thank You Letter, Antibiotic Education, Prescription Opioid Use. Follow up: Emergency Department; When: As needed; Reason: Worsening of condition. Follow up: Private Physician; When: 2 - 3 days; Reason: Recheck today's complaints, Continuance of care, Re-evaluation by your physician. kb
[2020-07-26 23:30] VITALS: TEMP 97.1; O2SAT 97
[2020-07-26 23:31] VITALS: BP 148/89
--- NOTE | 2020-07-29 10:48 | RAD REPORT ---
EXAM DESCRIPTION: CT - Thorax Wo Con - 07/27/2020 6:45 am CLINICAL HISTORY: Chest pain. COMPARISON: None. TECHNIQUE: CT scan of the chest was performed without IV contrast. This exam was performed according to our departmental dose-optimization program, which includes automated exposure control, adjustment of the mA and/or kV according to patient size and/or use of iterative reconstruction technique. FINDINGS: The thyroid gland is normal. There are calcified mediastinal and right hilar lymph nodes a long with right lung calcified granulomas, consistent with old granulomatous disease.. The heart size is normal without pericardial effusion. The thoracic aorta is normal caliber. No consolidation, pleu ral effusion, or pneumothorax is identified. There is a nondisplaced fracture of the right anterior s ixth rib. IMPRESSION: 1. Nondisplaced fracture of the right anterior sixth rib. 2. Sequela of old granulomatous disease. Electronically signed by: Jadiel Manjarrez MD 07/26/2020 10:14 PM CDT Due to temporary technical issues with the PACS/Fluency reporting system, reports are being signed by the in house radiologist without review as a courtesy to ensure prompt reporting. The interpreting r adiologist is fully responsible for the content of the report.
== END 2020-07-26 23:18 | disposition home or self-care (01) ==
LOC: ER 21:18
DX: S22.31XA Fracture of one rib, right side, initial encounter for closed fracture (principal); X58.XXXA Exposure to other specified factors, initial encounter; Y93.89 Activity, other specified; Y92.9 Unspecified place or not applicable; I10 Essential (primary) hypertension; F17.210 Nicotine dependence, cigarettes, uncomplicated
CPT/HCPCS: 71250; 99284

== ENCOUNTER 2020-08-07 11:39 | Emergency (ER) | payer BC ==
--- NOTE | 2020-08-07 13:11 | RAD REPORT ---
EXAM DESCRIPTION: Cece Samaniego And Archie (2 Views)08/07/2020 12:59 pm CLINICAL HISTORY: Rib pain COMPARISON: July 26, 2020 FINDINGS: The lungs appear clear of acute infiltrate. The heart is normal size. Mild elevation righ t hemidiaphragm unchanged. Previously described rib fracture is not visualized on this exam
--- NOTE | 2020-08-07 13:57 | EDPHYS ---
Physician Documentation [facility] Name: Bhavesh Graham Jr Age: 65 yrs Sex: Male : 1955 Arrival Date: 08/07/2020 Time: 11:40 Bed 8 Private MD: Shilpi Freeman H ED Physician Mac Brand HPI: 08/07 13:46 This 65 yrs old Male presents to ER via Ambulatory with complaints of Rib angelita Pain. 13:46 The patient or guardian reports chest pain that is located primarily in the anterior angelita chest wall, bilaterally. Onset: 1 week(s) ago. The patient presents with abdominal pain in the epigastric area. Onset: The symptoms/episode began/occurred 1 week(s) ago. The pain does not radiate. The symptoms do not radiate. Associated signs and symptoms: none. The symptoms are described as crampy. Modifying factors: The symptoms are alleviated by remaining still, the symptoms are aggravated by movement, pressure. Associated signs and symptoms: The patient has no apparent associated signs or symptoms. Historical: - Allergies: 12:15 No Known Allergies; ca1 - Home Meds: 12:15 losartan Oral [Active]; Metformin Oral [Active]; Glipizide Oral [Active]; Alprazolam ca1 Oral [Active]; - PMHx: 12:15 Diabetes - NIDDM; High Cholesterol; Hypertension; ca1 - PSHx: 12:15 Ear Surgery; Cholecystectomy; ca1 - Immunization history:: Adult Immunizations up to date, Flu vaccine is not up to date. - Social history:: Smoking status: Patient denies any tobacco usage or history of. - Family history:: not pertinent. ROS: 13:46 Constitutional: Negative for fever, chills, and weight loss, Eyes: Negative for injury, angelita pain, redness, and discharge, ENT: Negative for injury, pain, and discharge, Neck: Negative for injury, pain, and swelling, Cardiovascular: Negative for chest pain, palpitations, and edema, Respiratory: Negative for shortness of breath, cough, wheezing, and pleuritic chest pain, Back: Negative for injury and pain, : Negative for injury, bleeding, discharge, and swelling, MS/Extremity: Negative for injury and deformity, Skin: Negative for injury, rash, and discoloration, Neuro: Negative for headache, weakness, numbness, tingling, and seizure, Psych: Negative for depression, anxiety, suicide ideation, homicidal ideation, and hallucinations, Allergy/Immunology: Negative for hives, rash, and allergies, Endocrine: Negative for neck swelling, polydipsia, polyuria, polyphagia, and marked weight changes, Hematologic/Lymphatic: Negative for swollen nodes, abnormal bleeding, and unusual bruising. 13:46 Abdomen/GI: Positive for abdominal pain, of the right upper quadrant and left upper quadrant. Exam: 13:46 Constitutional: This is a well developed, well nourished patient who is awake, alert, angelita and in no acute distress. Head/Face: Normocephalic, atraumatic. Eyes: Pupils equal round and reactive to light, extra-ocular motions intact. Lids and lashes normal. Conjunctiva and sclera are non-icteric and not injected. Cornea within normal limits. Periorbital areas with no swelling, redness, or edema. ENT: Nares patent. No nasal discharge, no septal abnormalities noted. Tympanic membranes are normal and external auditory canals are clear. Oropharynx with no redness, swelling, or masses, exudates, or evidence of obstruction, uvula midline. Mucous membranes moist. Neck: Trachea midline, no thyromegaly or masses palpated, and no cervical lymphadenopathy. Supple, full range of motion without nuchal rigidity, or vertebral point tenderness. No Meningismus. Cardiovascular: Regular rate and rhythm with a normal S1 and S2. No gallops, murmurs, or rubs. Normal PMI, no JVD. No pulse deficits. Respiratory: Lungs have equal breath sounds bilaterally, clear to auscultation and percussion. No rales, rhonchi or wheezes noted. No increased work of breathing, no retractions or nasal flaring. Abdomen/GI: Soft, non-tender, with normal bowel sounds. No distension or tympany. No guarding or rebound. No evidence of tenderness throughout. Back: No spinal tenderness. No costovertebral tenderness. Full range of motion. Male : Normal genitalia with no discharge or lesions. Skin: Warm, dry with normal turgor. Normal color with no rashes, no lesions, and no evidence of cellulitis. 13:46 Chest/axilla: Inspection: normal, no acute changes, pain on palpation along costal margin, exactly like complaint pain, patients thinks it has to do with chiropractor manipulation. 13:58 ECG was reviewed by the Attending Physician. [facility] Vital Signs: 12:10 BP 150 / 85; Pulse 71; Resp 16 S; Temp 97(TE); Pulse Ox 99% on R/A; Weight 82.55 kg ca1 (R); Height 5 ft. 7 in. (170.18 cm) (R); Pain 4/10; 12:10 Body Mass Index 28.50 (82.55 kg, 170.18 cm) ca1 MDM: 13:05 Patient medically screened. angelita 13:53 Differential diagnosis: abnormal EKG, chest wall pain, hiatal hernia, non-specific abd angelita pain. HEART Score: History: Slightly Suspicious (0), ECG: Normal (0), Age: > 45 and < 65 years (1), Risk Factors: > or = 3 Risk factors for atherosclerotic disease (2), [Hypercholesterolemia] [Hypertension] [DM] [+ Family HX]. The patient's deep vein thrombosis risk score was calculated as follows: Total Score: 0. This patient was found to be at low risk for a deep vein thrombosis by using the Well's assessment criteria. The patient's pulmonary embolism risk score was calculated as follows: Total Score: 0-2 points. This patient was found to be at low risk for a pulmonary embolism by using the Well's assessment criteria. JESUS Risk Score: 1 - Three or more CAD risk factors. Data reviewed: vital signs, nurses notes, EKG, radiologic studies, plain films. Data interpreted: monitoring engineer: rate is 71 beats/min, rhythm is regular, Pulse oximetry: on room air is 99 %. Counseling: I had a detailed discussion with the patient and/or guardian regarding: the historical points, exam findings, and any diagnostic results supporting the discharge/admit diagnosis, radiology results, the need for outpatient follow up, for definitive care, a family practitioner. 08/07 12:16 Order name: Chest Pa And Lat (2 Views) XRAY ca1 08/07 13:45 Order name: INCENTIVE SPIROMETRY angelita 08/07 12:16 Order name: EKG; Complete Time: 12:17 ca1 08/07 12:16 Order name: EKG - Nurse/Tech; Complete Time: 12:16 ca1 EC:58 Rate is 68 beats/min. Rhythm is regular. QRS [place] is Normal. [place] interval is normal. QRS angelita interval is normal. QT interval is normal. No Q waves. T waves are Normal. No ST changes noted. Clinical impression: NSR w/ Non-specific ST/T Changes and No evidence of ischemia. Interpreted by me. Reviewed by me. Administered Medications: 13:54 Drug: Motrin 600 mg Route: PO; jl7 Disposition: 08/07/20 13:56 Discharged to Home. Impression: Contusion of left front wall of thorax, Contusion of right front wall of thorax. - Condition is Stable. - Discharge Instructions: Chest Wall Pain, Chest Wall Pain, [id number]. - Prescriptions for Tylenol- Codeine #3 300-30 mg Oral Tablet - take 2 tablets by ORAL route every 6 hours As needed; 24 tablet. Motrin IB 200 mg Oral Tablet - take 2 tablet by ORAL route every 6 hours As needed as needed with food; 30 tablet. - Medication Reconciliation Form, Thank You Letter, Antibiotic Education, Prescription Opioid Use form. - Follow up: Shilpi Freeman DO; When: 2 - 3 days; Reason: Recheck today's complaints, Continuance of care, Re-evaluation by your physician. - Problem is new. - Symptoms have improved. Signatures: Dispatcher [employer] EDMS Mac Brand MD MD cha Williams, Irene RN Benjamín Mujica RN RN jl7 Janell Staton RN RN ca1 Corrections: (The following items were deleted from the chart) 14:28 13:56 08/07/2020 13:56 Discharged to Home. Impression: Contusion of left front wall of iw thorax; Contusion of right front wall of thorax. Condition is Stable. Forms are Medication Reconciliation Form, Thank You Letter, Antibiotic Education, Prescription Opioid Use. Follow up: Shilpi Freeman; When: 2 - 3 days; Reason: Recheck today's complaints, Continuance of care, Re-evaluation by your physician. Problem is new. Symptoms have improved. angelita
--- NOTE | 2020-08-07 13:57 | ER ---
Nurse's Notes [facility] Name: Bhavesh Graham Jr Age: 65 yrs Sex: Male : 1955 Arrival Date: 08/07/2020 Time: 11:40 Bed 8 Private MD: Shilpi Freeman H Diagnosis: Contusion of left front wall of thorax;Contusion of right front wall of thorax Presentation: 08/07 12:10 Chief complaint: Patient states: L rib pain x 1 week. Was here a week ago, then they ca1 said I had crack on my R rib. Denies injury to the ribs. Denies cough. L sided rib pain, constant, radiating to the back, worse when laying down on the bed. Denies SOB. Coronavirus screen: Client denies travel out of the [place] in the last 14 days. At this time, the client does not indicate any symptoms associated with coronavirus-19. The client reports previous COVID testing was negative. Date of collection: July 30, 2020. Ebola Screen: Patient negative for fever greater than or equal to 101.5 degrees Fahrenheit, and additional compatible Ebola Virus Disease symptoms Patient denies exposure to infectious person. Patient denies travel to an Ebola-affected area in the 21 days before illness onset. No symptoms or risks identified at this time. Initial Sepsis Screen: Does the patient meet any 2 criteria? No. Patient's initial sepsis screen is negative. Does the patient have a suspected source of infection? No. Patient's initial sepsis screen is negative. Risk Assessment: Do you want to hurt yourself or someone else? Patient reports no desire to harm self or others. Onset of symptoms was August 07, 2020. 12:10 Method Of Arrival: Ambulatory ca1 12:10 Acuity: JASMEET 3 ca1 Triage Assessment: 12:10 General: Appears in no apparent distress. comfortable, Behavior is calm, cooperative, ca1 appropriate for age. Pain: Complains of pain in R rib. Historical: - Allergies: 12:15 No Known Allergies; ca1 - Home Meds: 12:15 losartan Oral [Active]; Metformin Oral [Active]; Glipizide Oral [Active]; Alprazolam ca1 Oral [Active]; - PMHx: 12:15 Diabetes - NIDDM; High Cholesterol; Hypertension; ca1 - PSHx: 12:15 Ear Surgery; Cholecystectomy; ca1 - Immunization history:: Adult Immunizations up to date, Flu vaccine is not up to date. - Social history:: Smoking status: Patient denies any tobacco usage or history of. - Family history:: not pertinent. Screenin:27 Abuse screen: Denies threats or abuse. Denies injuries from another. Nutritional iw screening: No deficits noted. Tuberculosis screening: No symptoms or risk factors identified. Fall Risk None identified. Vital Signs: 12:10 BP 150 / 85; Pulse 71; Resp 16 S; Temp 97(TE); Pulse Ox 99% on R/A; Weight 82.55 kg ca1 (R); Height 5 ft. 7 in. (170.18 cm) (R); Pain 4/10; 12:10 Body Mass Index 28.50 (82.55 kg, 170.18 cm) ca1 ED Course: 11:40 Patient arrived in ED. ag5 11:40 Shilpi Freeman DO is Private Physician. ag5 12:10 Arm band placed on right wrist. EKG completed in triage. Results shown to MD. ca1 12:10 Patient has correct armband on for positive identification. iw 12:13 Triage completed. ca1 12:59 Chest Pa And Lat (2 Views) XRAY In Process Unspecified. EDNH 13:05 Mac Brand MD is Attending Physician. [facility] 13:05 Benjamín Veloz, SHEY is Primary Nurse. jl7 13:54 INCENTIVE SPIROMETRY Sent. jl7 13:55 Shilpi Freeman DO is Referral Physician. angelita 14:28 No provider procedures requiring assistance completed. Patient did not have IV access iw during this emergency room visit. Administered Medications: 13:54 Drug: Motrin 600 mg Route: PO; jl7 Outcome: 13:56 Discharge ordered by . angelita 14:27 Discharged to home ambulatory. iw 14:27 Condition: good 14:27 Discharge instructions given to patient, Instructed on discharge instructions, the need for admit, medication usage, Demonstrated understanding of instructions, follow-up care, medications, Prescriptions given X 2. 14:28 Patient left the ED. iw Signatures: Dispatcher [employer] EDNH Mac Brand MD MD cha Williams, Irene, RN RN iw Benjamín Veloz RN RN jl7 Janell Staton RN RN ca1 Antonio Velarde ag5 Corrections: (The following items were deleted from the chart) 12:15 12:10 Pulse 71bpm; Resp 16bpm; Spontaneous; Pulse Ox 99% RA; Temp 97F Temporal; 82.55 ca1 kg Reported; Height 5 ft. 7 in. Reported; BMI: 28.5; Pain 4/10; ca1
[2020-08-07] MEDS ORDERED: IBUPROFEN 400 MG TAB ONE (14:01)
[2020-08-07 14:41] VITALS: BP 150/85; TEMP 97; O2SAT 99
--- NOTE | 2020-08-08 07:27 | EKG ---
Test Date: 2020-08-07 Test Time: 12:23:37 Habilitation Training Specialist: MEASUREMENT RESULTS: Intervals: Rate: 68 WI: 142 QRSD: 68 QT: 378 QTc: 401 [place]: P: 46 WI: 142 QRS: -9 T: 30 INTERPRETIVE STATEMENTS: Normal sinus rhythm Minimal voltage criteria for LVH, may be normal variant Possible Inferior infarct, age undetermined Abnormal ECG Compared to ECG 01/13/2020 19:29:06 Left ventricular hypertrophy now present Myocardial infarct finding still present Electronically Signed On 08-08-20 07:24:56 CDT by Josh Stevens
== END 2020-08-07 14:28 | disposition home or self-care (01) ==
LOC: ER 11:39
DX: S20.213A Contusion of bilateral front wall of thorax, initial encounter (principal); I10 Essential (primary) hypertension; E78.00 Pure hypercholesterolemia, unspecified; E11.9 Type 2 diabetes mellitus without complications
CPT/HCPCS: 71046; 93005; 99283

== ENCOUNTER 2021-05-27 12:40 | Emergency (ER) | payer BC ==
--- NOTE | 2021-05-27 13:46 | RAD REPORT ---
EXAM DESCRIPTION: CT - CTHCSPWOC - 05/27/2021 1:28 pm CLINICAL HISTORY: Trauma, head and neck injury. PAIN COMPARISON: No comparisons TECHNIQUE: Axial 5 mm thick images of the head were obtained. Axial 2 mm thick images of the cervical spine were obtained with sagittal and coronal reconstruction images generated and reviewed. All CT scans are performed using dose optimization technique as appropriate and may include automated exposure control or mA/KV adjustment according to patient size. FINDINGS: CT HEAD WITHOUT CONTRAST: No acute hemorrhage, hydrocephalus or extra-axial collection is identified.Mild brain atrophy.No area s of brain edema or midline shift. The paranasal sinuses and left mastoid are clear.Evidence of previous right mastoidectomy.The calvari um is intact. CT CERVICAL SPINE WITHOUT CONTRAST: No fracture or subluxation.Mild midcervical degenerative changes are present.No prevertebral soft tis sues swelling is identified. IMPRESSION: No acute intracranial or cervical spine findings. Mild midcervical degenerative changes are present.
--- NOTE | 2021-05-27 14:47 | RAD REPORT ---
EXAM DESCRIPTION: RAD - Shoulder Left 2 View - 05/27/2021 2:11 pm CLINICAL HISTORY: PAIN COMPARISON: No comparisons FINDINGS: Mild AC joint and glenohumeral joint degenerative changes are present. No acute fracture o r dislocation is seen.
--- NOTE | 2021-05-27 14:51 | ER ---
Nurse's Notes [facility] Name: Bhavesh Graham Jr Age: 65 yrs Sex: Male : 1955 Arrival Date: 05/27/2021 Time: 13:12 Bed Waiting Private MD: Diagnosis: Fall on same level from slipping, tripping and stumbling with subsequent striking against object;Radiculopathy, cervical region Presentation: 05/27 13:12 Chief complaint: Patient states: Left Shoulder pain starting Wednesday. Pt fell straight kg backwards and hit the door behind him and possible a step. Pt stated he hit his head and LOC for a few seconds. Pt complaining of left shoulder and neck pain. Coronavirus screen: Client denies travel out of the [place] in the last 14 days. At this time, unable to obtain information related to travel outside the [place] At this time, the client does not indicate any symptoms associated with coronavirus-19. Ebola Screen: Patient negative for fever greater than or equal to 101.5 degrees Fahrenheit, and additional compatible Ebola Virus Disease symptoms Patient denies exposure to infectious person. Patient denies travel to an Ebola-affected area in the 21 days before illness onset. Initial Sepsis Screen: Does the patient meet any 2 criteria? No. Patient's initial sepsis screen is negative. Does the patient have a suspected source of infection? No. Patient's initial sepsis screen is negative. Risk Assessment: Do you want to hurt yourself or someone else? Patient reports no desire to harm self or others. Onset of symptoms was May 25, 2021. 13:12 Method Of Arrival: Ambulatory kg 13:12 Acuity: JASMEET 4 kg Triage Assessment: 13:17 General: Appears in no apparent distress. Behavior is calm, cooperative, appropriate kg for age, quiet. Pain: Complains of pain in Neck, Left shoulder. Historical: - Allergies: 13:17 No Known Allergies; kg - Home Meds: 13:17 Alprazolam Oral [Active]; Glipizide Oral [Active]; losartan Oral [Active]; Metformin kg Oral [Active]; Farxiga oral [Active]; - PMHx: 13:17 Diabetes - NIDDM; High Cholesterol; Hypertension; kg - PSHx: 13:17 Cholecystectomy; Right Ear Sx; kg - Immunization history:: Adult Immunizations up to date, Client reports receiving the 2nd dose of the Covid vaccine, Date received: November 2020 Client reports receiving the 1st dose of the Covid vaccine, October 2020. - Social history:: Smoking status: Patient denies any tobacco usage or history of. Vital Signs: 13:12 BP 160 / 100; Pulse 89; Resp 20; Temp 97.8(TE); Pulse Ox 100% ; Weight 80.74 kg; Height kg 6 ft. 2 in. (187.96 cm); Pain 4/10; 13:12 Body Mass Index 22.85 (80.74 kg, 187.96 cm) kg ED Course: 13:12 Patient arrived in ED. mr 13:17 Triage completed. kg 13:17 Arm band placed on right wrist. kg 13:18 Arcelia Serrano FNP-C is PHCP. kb 13:18 Kamron Parnell MD is Attending Physician. kb 13:27 CT Head C Spine In Process Unspecified. EDMS 14:11 XRAY Shoulder LEFT 2 view In Process Unspecified. EDMS Administered Medications: No medications were administered Outcome: 14:50 Discharge ordered by . kb 14:56 Patient left the ED. kb Signatures: Dispatcher [employer] EDMS Arcelia Serrano FNP-C FNP-Ckb Melissa HeadLy, RN RN kg Corrections: (The following items were deleted from the chart) 14:08 13:12 Pulse 89bpm; Resp 89bpm; Pulse Ox 100%; Temp 97.8F Temporal; 80.74 kg; Height 6 kg ft. 2 in.; BMI: 22.8; Pain 4/10; kg
--- NOTE | 2021-05-27 14:51 | EDPHYS ---
Physician Documentation [facility] Name: Bhavesh Graham Jr Age: 65 yrs Sex: Male : 1955 Arrival Date: 05/27/2021 Time: 13:12 Bed Waiting Private MD: ED Physician Kamron Parnell HPI: 05/27 14:17 This 65 yrs old Male presents to ER via Ambulatory with complaints of kb Shoulder Pain. 14:17 Details of fall: The patient fell from an upright position. Onset: The symptoms/episode kb began/occurred 3 day(s) ago. Associated injuries: The patient sustained injury to the head, neck injury, pain, pain with movement, anterior aspect of left shoulder, painful injury. Severity of symptoms: At their worst the symptoms were mild, in the emergency department the symptoms are unchanged. The patient has not experienced similar symptoms in the past. The patient has not recently seen a physician. Pt reports he fell on Wednesday and hit head causing brief LOC. Reports neck pain and left shoulder pain that started after fall. Historical: - Allergies: 13:17 No Known Allergies; kg - Home Meds: 13:17 Alprazolam Oral [Active]; Glipizide Oral [Active]; losartan Oral [Active]; Metformin kg Oral [Active]; Farxiga oral [Active]; - PMHx: 13:17 Diabetes - NIDDM; High Cholesterol; Hypertension; kg - PSHx: 13:17 Cholecystectomy; Right Ear Sx; kg - Immunization history:: Adult Immunizations up to date, Client reports receiving the 2nd dose of the Covid vaccine, Date received: November 2020 Client reports receiving the 1st dose of the Covid vaccine, October 2020. - Social history:: Smoking status: Patient denies any tobacco usage or history of. ROS: 14:16 Constitutional: Negative for fever, chills, and weight loss. kb 14:16 Neck: Positive for pain with movement, pain at rest, tenderness, bony tenderness. 14:16 MS/extremity: Positive for pain, of the anterior aspect of left shoulder. 14:16 All other systems are negative. Exam: 14:15 Constitutional: This is a well developed, well nourished patient who is awake, alert, kb and in no acute distress. Head/Face: Normocephalic, atraumatic. ENT: Moist Mucous membranes Cardiovascular: Regular rate and rhythm with a normal S1 and S2. No gallops, murmurs, or rubs. No pulse deficits. Respiratory: Respirations even and unlabored. No increased work of breathing, no retractions or nasal flaring. Abdomen/GI: Soft, non-tender. No distention Skin: Warm, dry with normal turgor. Normal color. MS/ Extremity: Pulses equal, no cyanosis. Neurovascular intact. Full, normal range of motion. Neuro: Awake and alert, GCS 15, oriented to person, place, time, and situation. Moves all extremities. Normal gait. Psych: Awake, alert, with orientation to person, place and time. Behavior, mood, and affect are within normal limits. 14:15 Neck: C-spine: vertebral tenderness, that is moderate, appreciated at C6 and C7. Vital Signs: 13:12 BP 160 / 100; Pulse 89; Resp 20; Temp 97.8(TE); Pulse Ox 100% ; Weight 80.74 kg; Height kg 6 ft. 2 in. (187.96 cm); Pain 4/10; 13:12 Body Mass Index 22.85 (80.74 kg, 187.96 cm) kg MDM: 13:18 Patient medically screened. kb 13:56 Data reviewed: vital signs, nurses notes. Data interpreted: Pulse oximetry: on room air kb is 100 %. Interpretation: normal. 14:16 Counseling: I had a detailed discussion with the patient and/or guardian regarding: the kb historical points, exam findings, and any diagnostic results supporting the discharge/admit diagnosis, radiology results, the need for outpatient follow up, a family practitioner, to return to the emergency department if symptoms worsen or persist or if there are any questions or concerns that arise at home. 05/27 13:18 Order name: CT Head C Spine; Complete Time: 13:50 rn 05/27 13:18 Order name: XRAY Shoulder LEFT 2 view; Complete Time: 14:49 rn Administered Medications: No medications were administered Disposition: 17:22 Co-signature as Attending Physician, Kamron Parnell MD I agree with the assessment and rn plan of care. Attestation: The patient's history, exam findings, diagnostics, and a summary of any interventions or procedures was reviewed in detail with Arcelia VALLADARES. Disposition Summary: 05/27/21 14:50 Discharge Ordered Location: Home kb Condition: Stable kb Diagnosis - Fall on same level from slipping, tripping and stumbling with subsequent striking kb against object - Radiculopathy, cervical region kb Followup: kb - With: Emergency Department - When: As needed - Reason: Worsening of condition Followup: kb - With: Private Physician - When: 2 - 3 days - Reason: Recheck today's complaints, Continuance of care, Re-evaluation by your physician Discharge Instructions: - Discharge Summary Sheet kb - Musculoskeletal Pain kb - Pinched Nerve kb Forms: - Medication Reconciliation Form kb - Thank You Letter kb - Antibiotic Education kb - Prescription Opioid Use kb Prescriptions: - Cyclobenzaprine 10 mg Oral Tablet - take 1 tablet by ORAL route every 8 hours As needed; 21 tablet; Refills: 0, kb Product Selection Permitted - Diclofenac Sodium 75 mg Oral tablet,delayed release (DR/EC) - take 1 tablet by ORAL route 2 times per day As needed; 30 tablet; Refills: 0, kb Product Selection Permitted Signatures: Dispatcher [employer] Arcelia Gao, ANA-C [employer]CE[employer] FORWARDER-Kamron Ochoa MD MD rn Graham, Kristen, RN RN kg
[2021-05-27 15:02] VITALS: BP 160/100; TEMP 97.8; O2SAT 100
== END 2021-05-27 14:56 | disposition home or self-care (01) ==
LOC: ER 12:40
DX: M54.12 Radiculopathy, cervical region (principal); M25.512 Pain in left shoulder; W01.198A Fall on same level from slipping, tripping and stumbling with subsequent striking against other object, initial encounter; I10 Essential (primary) hypertension; E11.9 Type 2 diabetes mellitus without complications
CPT/HCPCS: 70450; 72125; 99282

== ENCOUNTER 2021-09-29 13:09 | Emergency (ER) | payer BC ==
--- NOTE | 2021-09-29 17:29 | EDPHYS ---
Physician Documentation [facility] Name: Bhavesh Graham Jr Age: 66 yrs Sex: Male : 1955 Arrival Date: 09/29/2021 Time: 13:13 Bed 9 Private MD: Shilpi Freeman H ED Physician Kamron Parnell HPI: 09/29 17:21 This 66 yrs old Male presents to ER via Ambulatory with complaints of back rn pain, leg pain. 17:21 The patient presents with pain, that is acute. The complaints affect the left leg, left rn back. Context: The problem was sustained at home, resulted from the patient falling, the patient can fully bear weight, the patient is able to ambulate. Onset: The symptoms/episode began/occurred 2 week(s) ago. Modifying factors: The symptoms are alleviated by nothing. the symptoms are aggravated by nothing. Severity of symptoms: At their worst the symptoms were mild, in the emergency department the symptoms are unchanged. The patient has experienced similar episodes in the past. The patient has not recently seen a physician. Patient reports fell 2 to 3 weeks ago, on his buttocks, slipped on water, did not have immediate pain but then started to develop left lower back pain that radiates down the leg. Reports has had this issue before even before fall. Seen in urgent care and given muscle relaxer and anti-inflammatory but pain has not resolved. Denies any weakness of the leg denies any focal tenderness or bony tenderness. Is ambulatory and reports pain comes and goes.. Historical: - PMHx: 14:19 Diabetes - NIDDM; High Cholesterol; Hypertension; jh5 - PSHx: 14:19 Cholecystectomy; Right Ear Sx; jh5 - Immunization history:: Adult Immunizations up to date. - Social history:: Smoking status: Patient denies any tobacco usage or history of. - Family history:: not pertinent. - Hospitalizations: : No recent hospitalization is reported. ROS: 17:25 Constitutional: Negative for fever, chills, and weight loss, Eyes: Negative for injury, rn pain, redness, and discharge, Neck: Negative for injury, pain, and swelling, Cardiovascular: Negative for chest pain, palpitations, and edema, Respiratory: Negative for shortness of breath, cough, wheezing, and pleuritic chest pain, Abdomen/GI: Negative for abdominal pain, nausea, vomiting, diarrhea, and constipation, Back: Negative for injury MS/Extremity: Negative for deformity, Skin: Negative for injury, rash, and discoloration, Neuro: Negative for headache, weakness, numbness, tingling, and seizure. Exam: 17:25 Constitutional: This is a well developed, well nourished patient who is awake, alert, rn and in no acute distress. Ambulatory without difficulty or distress Head/Face: Normocephalic, atraumatic. Eyes: Periorbital areas with no swelling, redness, or edema. Back: No spinal tenderness. No costovertebral tenderness. Full range of motion. Skin: Warm, dry MS/ Extremity: Pulses equal, no cyanosis. Neurovascular intact. Full, normal range of motion. Equal circumference. Neuro: Awake and alert, GCS 15, oriented to person, place, time, and situation. Cranial nerves II-XII grossly intact. Motor strength 5/5 in all extremities. Sensory grossly intact. Cerebellar exam normal. Normal gait. Vital Signs: 14:14 BP 149 / 86; Pulse 67; Resp 16; Temp 98.6; Pulse Ox 98% ; Weight 81.19 kg; Height 5 ft. jh5 7 in. (170.18 cm); Pain 5/10; 14:14 Body Mass Index 28.04 (81.19 kg, 170.18 cm) jh5 MDM: 17:02 Patient medically screened. rn 17:25 Differential diagnosis: contusion, sciatica, radiculopathy. Data reviewed: vital signs, rn nurses notes, and as a result, I will discharge patient. Counseling: I had a detailed discussion with the patient and/or guardian regarding: the historical points, exam findings, and any diagnostic results supporting the discharge/admit diagnosis, the need for outpatient follow up, to return to the emergency department if symptoms worsen or persist or if there are any questions or concerns that arise at home. Response to treatment: the patient's symptoms have mildly improved after treatment, and as a result, I will discharge patient. Special discussion: I discussed with the patient/guardian in detail that at this point there is no indication for admission to the hospital. It is understood, however, that if the symptoms persist or worsen the patient needs to return immediately for re-evaluation. ED course: Patient ambulatory without focal pain. Reports intermittent pain. Pain radiates from back down left leg. Will treat with symptomatic treatment and return precautions. Told if does not improve with this treatment will follow up with PCP for outpatient MRI.. Administered Medications: No medications were administered Disposition Summary: 09/29/21 17:28 Discharge Ordered Location: Home rn Problem: an ongoing problem rn Symptoms: have improved rn Condition: Stable rn Diagnosis - Radiculopathy, lumbosacral region rn Followup: rn - With: Private Physician - When: As needed - Reason: Recheck today's complaints, Re-evaluation by your physician Discharge Instructions: - Discharge Summary Sheet rn - Lumbosacral Radiculopathy rn - Pinched Nerve rn Forms: - Medication Reconciliation Form rn - Thank You Letter rn - Antibiotic rn pain management - Prescription Opioid Use rn Prescriptions: - Cyclobenzaprine 10 mg Oral Tablet - take 1 tablet by ORAL route every 8 hours As needed; 15 tablet; Refills: 0, rn Product Selection Permitted - Medrol (Arya) 4 mg Oral Tablets, Dose Pack - take 1 tablet by ORAL route as directed - follow package instructions; 1 rn packet; Refills: 0, Product Selection Permitted Signatures: Dispatcher [employer] EDMS Kamron Parnell MD MD rn Trina Lizama RN RN jh5 Corrections: (The following items were deleted from the chart) 17:32 17:01 Knee Left 3 View+RAD.RAD.BRZ ordered. EDMS EDMS 17:33 17:24 Knee Left 3 View+RAD.RAD.BRZ ordered. EDMS EDMS
--- NOTE | 2021-09-29 17:29 | ER ---
Nurse's Notes [facility] Name: Bhavesh Graham Jr Age: 66 yrs Sex: Male : 1955 Arrival Date: 09/29/2021 Time: 13:13 Bed 9 Private MD: Shilpi Freeman H Diagnosis: Radiculopathy, lumbosacral region Presentation: 09/29 14:14 Chief complaint: Patient states: slipped on water in my house 2-3 weeks ago and my left jh5 leg has progressively hurt worse since the fall. Went to urgent care and they gave me muscle relaxer and a z pack and it helped for a bit but now it's back. Coronavirus screen: Vaccine status: Patient reports receiving the 2nd dose of the covid vaccine. Client denies travel out of the [place] in the last 14 days. Ebola Screen: Patient negative for fever greater than or equal to 101.5 degrees Fahrenheit, and additional compatible Ebola Virus Disease symptoms Patient denies exposure to infectious person. Patient denies travel to an Ebola-affected area in the 21 days before illness onset. Initial Sepsis Screen: Does the patient meet any 2 criteria? No. Patient's initial sepsis screen is negative. Does the patient have a suspected source of infection? No. Patient's initial sepsis screen is negative. Risk Assessment: Do you want to hurt yourself or someone else? Patient reports no desire to harm self or others. Onset of symptoms was August 30, 2021. 14:14 Method Of Arrival: Ambulatory [facility] 14:14 Acuity: JASMEET 4 jh5 Triage Assessment: 14:19 General: Appears in no apparent distress. comfortable, well groomed, well developed, jh5 well nourished, Behavior is calm, cooperative, appropriate for age. Pain: Complains of pain in left leg. Historical: - PMHx: 14:19 Diabetes - NIDDM; High Cholesterol; Hypertension; jh5 - PSHx: 14:19 Cholecystectomy; Right Ear Sx; jh5 - Immunization history:: Adult Immunizations up to date. - Social history:: Smoking status: Patient denies any tobacco usage or history of. - Family history:: not pertinent. - Hospitalizations: : No recent hospitalization is reported. Screenin:15 Abuse screen: Denies threats or abuse. Denies injuries from another. Nutritional ss screening: No deficits noted. Tuberculosis screening: Never had TB. Fall Risk None identified. Assessment: 17:36 Reassessment: Patient appears in no apparent distress at this time. Patient and/or ss family updated on plan of care and expected duration. Pain level reassessed. Vital Signs: 14:14 BP 149 / 86; Pulse 67; Resp 16; Temp 98.6; Pulse Ox 98% ; Weight 81.19 kg; Height 5 ft. [facility] 7 in. (170.18 cm); Pain 5/10; 14:14 Body Mass Index 28.04 (81.19 kg, 170.18 cm) [facility] ED Course: 13:13 Patient arrived in ED. mr 13:13 Shilpi Freeman DO is Private Physician. mr 14:19 Triage completed. [facility] 17:00 Trina Lizama, RN is Primary Nurse. [facility] 17:02 Kamron Parnell MD is Attending Physician. rn 17:15 Patient has correct armband on for positive identification. ss 17:15 No provider procedures requiring assistance completed. Patient did not have IV access ss during this emergency room visit. Administered Medications: No medications were administered Outcome: 17:28 Discharge ordered by . rn 17:36 Discharged to home ambulatory. ss 17:36 Condition: good 17:36 Discharge instructions given to patient, Instructed on discharge instructions, follow up and referral plans. medication usage, Demonstrated understanding of instructions, follow-up care, Prescriptions given X 2. 17:37 Patient left the ED. ss Signatures: Melissa Head mr Kamron Parnell MD MD rn Smirch, Shelby, RN RN Trina Lizama RN RN [facility]
[2021-09-29 17:42] VITALS: BP 149/86; TEMP 98.6; O2SAT 98
== END 2021-09-29 17:37 | disposition home or self-care (01) ==
LOC: ER 13:09
DX: M54.17 Radiculopathy, lumbosacral region (principal); I10 Essential (primary) hypertension
CPT/HCPCS: 99282

== ENCOUNTER → 2023-11-21 | Emergency (ER) | payer BC ==
[~2023-11-21] MED LIST: ONDANSETRON 4 MG (ODT) TAB ONE
[2023-11-21 20:55] LABS: SARS-CoV-2 Antigen Rapid Res Positive (Negative)
--- NOTE | 2023-11-21 20:57 | ER ---
Nurse's Notes [facility] Name: Bhavesh Graham Jr Age: 68 yrs Sex: Male : 1955 Arrival Date: 11/21/2023 Time: 19:56 Bed IW2 Private MD: Diagnosis: SARS-associated coronavirus as the cause of diseases classified elsewhere Presentation: 11/21 20:14 Chief complaint: Patient states: "I've have N/V and fever since this morning. I feel mb9 like my stomach hurts because I've been vomiting.". Coronavirus screen: Vaccine status: Patient reports being unvaccinated. Ebola Screen: No symptoms or risks identified at this time. Initial Sepsis Screen: Does the patient meet any 2 criteria? No. Patient's initial sepsis screen is negative. Does the patient have a suspected source of infection? No. Patient's initial sepsis screen is negative. Risk Assessment: Do you want to hurt yourself or someone else? Patient reports no desire to harm self or others. Onset of symptoms was November 21, 2023. 20:14 Method Of Arrival: Ambulatory mb9 20:14 Acuity: JASMEET 4 mb9 Triage Assessment: 20:17 General: Appears in no apparent distress. Behavior is calm, cooperative. Pain: Denies mb9 pain. EENT: Reports nasal congestion. Neuro: Level of Consciousness is awake, alert, obeys commands, Oriented to person, place, time, situation, Appropriate for age. Cardiovascular: Patient's skin is warm and dry. Respiratory: Airway is patent Respiratory effort is even, unlabored, Respiratory pattern is regular, symmetrical. GI: Reports nausea, vomiting. : No signs and/or symptoms were reported regarding the genitourinary system. Derm: Skin is pink, warm \\T\\ dry. Musculoskeletal: Range of motion: intact in all extremities. Historical: - Allergies: 20:15 NKA; mb9 - Home Meds: 20:15 losartan oral [Active]; metformin 500 mg Oral tablet [Active]; Glipizide Oral [Active]; mb9 - PMHx: 20:15 Diabetes - NIDDM; High Cholesterol; Hypertension; mb9 - PSHx: 20:15 Cholecystectomy; Right Ear Sx; mb9 - Immunization history:: Adult Immunizations up to date. - Social history:: Smoking status: Patient denies any tobacco usage or history of. Assessment: 21:09 Reassessment: Patient and/or family updated on plan of care and expected duration. Pain mb9 level reassessed. Patient is alert, oriented x 3, equal unlabored respirations, skin warm/dry/pink. Patient states feeling better. Patient states symptoms have improved. Vital Signs: 20:14 BP 154 / 86; Pulse 106; Resp 18; Temp 97.8; Pulse Ox 96% ; Weight 79.38 kg; Height 5 mb9 ft. 7 in. ; Pain 0/10; 20:14 Body Mass Index 27.41 (79.38 kg, 170.18 cm) mb9 20:14 Pain Scale: Adult mb9 ED Course: 20:00 Patient arrived in ED. jj6 20:06 Suze Schofield PA-C is PHCP. sb4 20:06 Benji Light MD is Attending Physician. sb4 20:15 Triage completed. mb9 20:17 Arm band placed on. mb9 20:22 Flu Sent. mb9 20:22 SARS RAPID Sent. mb9 21:07 Melissa Roldan, SHEY is Primary Nurse. mb9 21:09 No provider procedures requiring assistance completed. Patient did not have IV access mb9 during this emergency room visit. Administered Medications: 20:22 Drug: Ondansetron Oral Disintegrating Tablet Oral Disintegrating Tablet 4 mg PO once mb9 Route: PO; 21:09 Follow up: Response: No adverse reaction mb9 Outcome: 20:57 Discharge ordered by MD. sb4 21:09 Discharged to home ambulatory, mb9 21:09 Condition: stable 21:09 Discharge instructions given to patient, Instructed on discharge instructions, follow up and referral plans. Demonstrated understanding of instructions, follow-up care, medications, Prescriptions given X 2, 21:09 Patient left the ED. mb9 Signatures: Arabella Wallace jj6 Suze Schofield PA-C PA-C sb4 Breneman, Mary Beth, RN RN mb9 Corrections: (The following items were deleted from the chart) 20:18 20:14 Acuity: JASMEET 3 mb9 mb9
--- NOTE | 2023-11-21 20:57 | EDPHYS ---
Physician Documentation [facility] Name: Bhavesh Graham Jr Age: 68 yrs Sex: Male : 1955 Arrival Date: 11/21/2023 Time: 19:56 Bed IW2 Private MD: ED Physician Benji Light HPI: 11/21 20:20 This 68 yrs old Male presents to ER via Ambulatory with complaints of Flu Symptoms. sb4 20:20 subjective fever, cough, vomiting since this morning. works at [employer], likely exposed sb4 to illness. no body aches or sore throat. no alleviating or aggravating factors. symptoms are mild in severity. Historical: - Allergies: 20:15 NKA; mb9 - Home Meds: 20:15 losartan oral [Active]; metformin 500 mg Oral tablet [Active]; Glipizide Oral [Active]; mb9 - PMHx: 20:15 Diabetes - NIDDM; High Cholesterol; Hypertension; mb9 - PSHx: 20:15 Cholecystectomy; Right Ear Sx; mb9 - Immunization history:: Adult Immunizations up to date. - Social history:: Smoking status: Patient denies any tobacco usage or history of. ROS: 23:02 Cardiovascular: Negative for chest pain, palpitations, and edema, sb4 23:02 Constitutional: Positive for fever, 23:02 Abdomen/GI: Positive for nausea and vomiting, 23:02 All other systems are negative, Exam: 23:02 Constitutional: This is a well developed, well nourished patient who is awake, alert, sb4 and in no acute distress. Head/Face: Normocephalic, atraumatic. Eyes: Extra-ocular motions intact. Periorbital areas with no swelling, redness, or edema. ENT: Mucous membranes moist. Cardiovascular: Regular rate and rhythm with a normal S1 and S2. Respiratory: Lungs have equal breath sounds bilaterally, clear to auscultation and percussion. No rales, rhonchi or wheezes noted. No increased work of breathing, no retractions or nasal flaring. Abdomen/GI: Soft, non-tender, no distension. Skin: Warm, dry with normal turgor. Normal color with no rashes, no lesions, and no evidence of cellulitis. MS/ Extremity: Pulses equal, no cyanosis. Neurovascular intact. Full, normal range of motion. Neuro: Awake and alert, GCS 15, oriented to person, place, time, and situation. Motor strength 5/5 in all extremities. Sensory grossly intact. Vital Signs: 20:14 BP 154 / 86; Pulse 106; Resp 18; Temp 97.8; Pulse Ox 96% ; Weight 79.38 kg; Height 5 mb9 ft. 7 in. ; Pain 0/10; 20:14 Body Mass Index 27.41 (79.38 kg, 170.18 cm) mb9 20:14 Pain Scale: Adult mb9 MDM: 20:15 Patient medically screened. sb4 23:02 Differential diagnosis: covid, flu, gastroenteritis. Data reviewed: vital signs, nurses sb4 notes, lab test result(s), and as a result, I will discharge patient. Counseling: I had a detailed discussion with the patient and/or guardian regarding the historical points, exam findings, and any diagnostic results supporting the discharge/admit diagnosis, lab results, to return to the emergency department if symptoms worsen or persist or if there are any questions or concerns that arise at home. 11/21 20:19 Order name: SARS RAPID; Complete Time: 20:56 sb4 11/21 20:19 Order name: Flu; Complete Time: 21:05 sb4 Administered Medications: 20:22 Drug: Ondansetron Oral Disintegrating Tablet Oral Disintegrating Tablet 4 mg PO once mb9 Route: PO; 21:09 Follow up: Response: No adverse reaction mb9 Disposition: 11/22 04:26 Co-signature as Attending Physician, Benji Light MD I agree with the assessment sp4 and plan of care. I reviewed the patient's care provided by the Advanced Practice Provider and agree with the diagnosis and treatment plan. Disposition Summary: 11/21/23 20:57 Discharge Ordered Notes: Location: Home sb4 Problem: new sb4 Symptoms: are unchanged sb4 Condition: Stable sb4 Diagnosis - SARS-associated coronavirus as the cause of diseases classified elsewhere sb4 Followup: sb4 - With: Emergency Department - When: As needed - Reason: Trouble breathing, Worsening of condition Discharge Instructions: - Discharge Summary Sheet sb4 - COVID-19: What to Do If You Are Sick - [facility] (01/06/2022) sb4 Forms: - Medication Reconciliation Form sb4 - Thank You Letter sb4 - Antibiotic Education sb4 - Prescription Opioid Use sb4 - Patient Portal Instructions sb4 - Leadership Thank You Letter sb4 - Work release form mb9 Prescriptions: - Paxlovid 300 mg (150 mg x 2)-100 mg Oral Tablet, Dose Pack - take 1 dose pack ORAL route per package directions; 1 Pack; Refills: 0, Product sb4 Selection Permitted - Zofran 4 mg Oral Tablet - take 1 tablet ORAL route every 12 hours As needed; 20 tablet; Refills: 0, sb4 Product Selection Permitted Signatures: Dispatcher [employer] Suze Morrell PA-C PA-C sb4 Mleissa Roldan RN RN mb9 Benji Light MD MD sp4
[2023-11-22 02:07] VITALS: BP 154/86; TEMP 97.8; O2SAT 96
== END ==
LOC: ER 19:56
DX: U07.1 COVID-19 (principal); E11.9 Type 2 diabetes mellitus without complications; I10 Essential (primary) hypertension
CPT/HCPCS: 36415; 87804 ×2; 87811; Q0162

== ENCOUNTER → 2024-01-07 | Emergency (ER) | payer BC ==
--- NOTE | 2024-01-07 18:50 | RAD REPORT ---
EXAM DESCRIPTION: RAD - Chest Pa And Lat (2 Views) - 01/07/2024 6:36 pm CLINICAL HISTORY: Cough;Congestion Chest pain. COMPARISON: Chest Pa And Lat (2 Views) dated 08/07/2020; Chest Single View dated 01/13/2020; Chest Pa And Lat (2 Views) dated 05/31/2018; Chest Pa And Lat (2 Views) dated 02/24/2016 FINDINGS: Interstitial markings are prominent bilaterally which may be related to interstitial pulmo nary edema or viral infection. The heart is mildly enlarged. No displaced fractures.
--- NOTE | 2024-01-07 19:35 | ER ---
Nurse's Notes [facility] Name: Bhavesh Graham Jr Age: 68 yrs Sex: Male : 1955 Arrival Date: 01/07/2024 Time: 17:19 Bed 11 Private MD: Diagnosis: Acute upper respiratory infection, unspecified Presentation: 01/06 17:36 Chief complaint: Patient states: sore throat yesterday and today I feel like I have iw some upper respiratory issues and a runny nose and headache. Coronavirus screen: Client presents with at least one sign or symptom that may indicate coronavirus-19. Ebola Screen: Patient negative for fever greater than or equal to 101.5 degrees Fahrenheit, and additional compatible Ebola Virus Disease symptoms Patient denies exposure to infectious person. Patient denies travel to an Ebola-affected area in the 21 days before illness onset. No symptoms or risks identified at this time. Initial Sepsis Screen: Does the patient meet any 2 criteria? No. Patient's initial sepsis screen is negative. Does the patient have a suspected source of infection? No. Patient's initial sepsis screen is negative. Risk Assessment: Do you want to hurt yourself or someone else? Patient reports no desire to harm self or others. Onset of symptoms was January 06, 2024. 17:36 Method Of Arrival: Ambulatory iw 17:36 Acuity: JASMEET 4 iw Historical: - Allergies: 17:37 NKA; iw - PMHx: 17:37 Diabetes - NIDDM; Hypertension; High Cholesterol; iw - PSHx: 17:37 Right Ear Sx; Cholecystectomy; iw - Immunization history:: Adult Immunizations. - Social history:: Smoking status: Patient/guardian denies using tobacco, but has a distant history of tobacco abuse. Screenin:10 [facility] ED Fall Risk Assessment (Adult) History of falling in the last 3 months, ko1 including since admission No falls in past 3 months (0 pts) Confusion or Disorientation No (0 pts) Intoxicated or Sedated No (0 pts) Impaired Gait No (0 pts) Mobility Assist Device Used No (0 pt) Altered Elimination No (0 pt) Score/Fall Risk Level 0 - 2 = Low Risk Oriented to surroundings, Maintained a safe environment, Educated pt \T\ family on fall prevention, incl call for assistance when getting out of bed, Assessed \T\ reinforced patient's understanding of fall precautions, Provided non-skid footwear, Hourly rounding (assess needs \T\ fall precautionary measures) done, Used ambulatory aids as needed (educated on \T\ assisted with), Used gait belt as appropriate. Abuse screen: Denies threats or abuse. Denies injuries from another. Nutritional screening: No deficits noted. Tuberculosis screening: No symptoms or risk factors identified. Assessment: 18:10 General: Appears in no apparent distress. Behavior is calm, cooperative, appropriate ko1 for age. Pain: Denies pain. Neuro: No deficits noted. Cardiovascular: Capillary refill < 3 seconds Patient's skin is warm and dry. Respiratory: Reports cough that is non-productive, Airway is patent Respiratory effort is even, unlabored, Respiratory pattern is regular, symmetrical, Breath sounds are clear bilaterally. GI: No deficits noted. : No deficits noted. EENT: Reports nasal congestion. Derm: No deficits noted. Musculoskeletal: No deficits noted. 19:40 Reassessment: No changes from previously documented assessment. Patient and/or family mb9 updated on plan of care and expected duration. Pain level reassessed. Patient is alert, oriented x 3, equal unlabored respirations, skin warm/dry/pink. Vital Signs: 17:36 BP 143 / 92; Pulse 91; Resp 18; Temp 98.8; Pulse Ox 97% on R/A; Weight 80.74 kg; Height iw 5 ft. 7 in. ; 19:32 BP 143 / 82; Pulse 84; Resp 18; Pulse Ox 98% ; mb9 17:36 Body Mass Index 27.88 (80.74 kg, 170.18 cm) ED Course: 17:20 Patient arrived in ED. rg4 17:23 Arcelia Serrano FNP-C is [facility]. kb 17:23 Mac Brand MD is Attending Physician. kb 17:37 Triage completed. iw 17:38 Arm band placed on. iw 18:08 Courtney Nunn, SHEY is Primary Nurse. ko1 18:10 Patient has correct armband on for positive identification. Bed in low position. Call ko1 light in reach. Provided Education on: na. Pulse ox on. NIBP on. Door closed. Noise minimized. 18:10 No provider procedures requiring assistance completed. Patient did not have IV access ko1 during this emergency room visit. 18:13 Flu Sent. ko1 18:13 Strep Sent. ko1 18:13 COVID-19 SARS RT PCR Sent. ko1 18:37 Chest Pa And Lat (2 Views) XRAY In Process Unspecified. EDMS Administered Medications: 19:37 Drug: Ondansetron Oral Disintegrating Tablet Oral Disintegrating Tablet 4 mg PO once sergio9 Route: PO; Medication: 18:10 VIS not applicable for this client. ko1 Outcome: 19:35 Discharge ordered by . abiola 19:39 Discharged to home ambulatory, mb9 19:39 Condition: stable 19:39 Discharge instructions given to patient, Instructed on discharge instructions, follow up and referral plans. Demonstrated understanding of instructions, follow-up care, medications, Prescriptions given X 1, 19:40 Patient left the ED. mb9 Signatures: Dispatcher [employer] EDMS Arcelia Serrano, CEMENT TRUCK LOADER-C CEMENT TRUCK LOADER-Ckb An Diggs, RN Elana Melara rg4 Courtney Nunn RN RN ko1 Melissa Roldan, RN RN mb9 Corrections: (The following items were deleted from the chart) 17:38 17:37 Social history: Smoking status: Patient denies any tobacco usage or history of. shyam
--- NOTE | 2024-01-07 19:35 | EDPHYS ---
Physician Documentation [facility] Name: Bhavesh Graham Jr Age: 68 yrs Sex: Male : 1955 Arrival Date: 01/07/2024 Time: 17:19 Bed 11 Private MD: ED Physician Mac Brand HPI: 01/06 20:10 This 68 yrs old Male presents to ER via Ambulatory with complaints of Cough, Congestion.kb 20:10 Patient is a 68-year-old male who presents for "upper respiratory symptoms." Patient kb states he had a sore throat yesterday and today has had cough, congestion, body aches. Denies nausea, vomiting, diarrhea, fever, chills. . Historical: - Allergies: 17:37 NKA; iw - PMHx: 17:37 Diabetes - NIDDM; Hypertension; High Cholesterol; iw - PSHx: 17:37 Right Ear Sx; Cholecystectomy; iw - Immunization history:: Adult Immunizations. - Social history:: Smoking status: Patient/guardian denies using tobacco, but has a distant history of tobacco abuse. ROS: 20:09 Constitutional: As per HPI kb Exam: 20:09 Constitutional: This is a well developed, well nourished patient who is awake, alert, kb and in no acute distress. Head/Face: Normocephalic, atraumatic. ENT: Moist Mucous membranes Cardiovascular: Regular rate Respiratory: Respirations even and unlabored. No increased work of breathing. Talking in full sentences Skin: Warm, dry with normal turgor. Normal color. MS/ Extremity: Pulses equal, no cyanosis. Neurovascular intact. Full, normal range of motion. Neuro: Awake and alert, GCS 15, oriented to person, place, time, and situation. Moves all extremities. Normal gait. Vital Signs: 17:36 BP 143 / 92; Pulse 91; Resp 18; Temp 98.8; Pulse Ox 97% on R/A; Weight 80.74 kg; Height iw 5 ft. 7 in. ; 19:32 BP 143 / 82; Pulse 84; Resp 18; Pulse Ox 98% ; mb9 17:36 Body Mass Index 27.88 (80.74 kg, 170.18 cm) iw MDM: 17:23 Patient medically screened. kb 20:10 Differential Diagnosis: Other Flu, COVID, strep, pneumonia, URI. Data reviewed: vital kb signs, nurses notes. Counseling: I had a detailed discussion with the patient and/or guardian regarding the historical points, exam findings, and any diagnostic results supporting the discharge/admit diagnosis, lab results, radiology results, the need for outpatient follow up, a family practitioner, to return to the emergency department if symptoms worsen or persist or if there are any questions or concerns that arise at home. 20:10 I considered the following discharge prescriptions or medication management in the emergency department I discussed and recommended Over The Counter medications, Antibiotics: At this time antibiotics are not recommended, Antivirals: At this time, antivirals are not recommended. 20:11 ED course: At time of discharge patient requested something for nausea which was not kb previously reported. Patient continues to deny abdominal pain.. 01/06 17:58 Order name: COVID-19 SARS RT PCR; Complete Time: 19:34 kb 01/06 17:58 Order name: Strep; Complete Time: 18:46 kb 01/06 17:58 Order name: Flu; Complete Time: 18:46 kb 01/06 18:47 Order name: Throat Culture [facility] 01/06 17:58 Order name: Chest Pa And Lat (2 Views) XRAY; Complete Time: 18:51 kb Administered Medications: 19:37 Drug: Ondansetron Oral Disintegrating Tablet Oral Disintegrating Tablet 4 mg PO once mb9 Route: PO; Disposition Summary: 01/07/24 19:35 Discharge Ordered Notes: Location: Home Condition: Stable kb Diagnosis - Acute upper respiratory infection, unspecified kb Followup: kb - With: Emergency Department - When: As needed - Reason: Worsening of condition Followup: kb - With: Private Physician - When: 2 - 3 days - Reason: Recheck today's complaints, Continuance of care, Re-evaluation by your physician Discharge Instructions: - Discharge Summary Sheet kb - Upper Respiratory Infection, Adult, [id number] kb - Viral Respiratory Infection, [id number] kb Forms: - Medication Reconciliation Form kb - Thank You Letter kb - Antibiotic Education kb - Prescription Opioid Use kb - Patient Portal Instructions kb - Leadership Thank You Letter kb Prescriptions: - Zofran 4 mg Oral tablet - take 1 tablet ORAL route every 6 hours As needed; 12 tablet; Refills: 0, kb Product Selection Permitted Signatures: Dispatcher [employer] EDArcelia Adkins, PROGRAM COUNSELOR-C PROGRAM COUNSELOR-CkAn Nickerson RN RN iw Melissa Roldan RN RN mb9 Corrections: (The following items were deleted from the chart) 17:38 17:37 Social history: Smoking status: Patient denies any tobacco usage or history of. iwiw
[2024-01-07 20:19] VITALS: BP 143/82; TEMP 98.8; O2SAT 98
== END ==
LOC: ER 17:19
DX: J06.9 Acute upper respiratory infection, unspecified (principal); Z11.52 Encounter for screening for COVID-19; E11.9 Type 2 diabetes mellitus without complications; I10 Essential (primary) hypertension
CPT/HCPCS: 87070; 87081; 87635; 87804 ×2; 71046; 99284; Q0162